=== PATIENT | male | born 1960 | race Two or more races ===

== ENCOUNTER 2017-01-30 21:30 | Inpatient (IN) | payer MEDICARE ==
[~2017-01-30] VITALS: Ht 175.3 cm; Wt 98.0 kg
[~2017-01-30 21:30] MED LIST: AMLO5TAB2 PO; BUPR-51 PO; HYDR-4077 PO; HYDR4TAB57 PO; INSU100V3 SQ; INSU3INS6 SUBCUT; LOSA100T15 PO; MORP15TA PO; PREG75CA PO; ZOLP10TA2 PO
[2017-01-30] MEDS ORDERED: IV NS 0.9% 1,000 ML BAG IV ONE (22:00)
[2017-01-30] MEDS ORDERED: HYDROMORPHONE INJ 2 MG/ML DISP.SYRIN IV ONE (22:00)
[2017-01-30] MEDS ORDERED: ONDANSETRON HCL/PF 4 MG/2 ML VIAL IVP ONE (22:00)
--- NOTE | 2017-01-30 22:00 | NUR ---
PT CAME IN FOR "HIGH BLOOD SUGAR", ALSO WITH C/O LOWER BACK PAIN AND LOWER ABD PAIN. SEEN BY MD FOR EVAL. VSS. FAMILY AT . SAFETY AND COMFORT MEASURES PROVIDED. WILL MONITOR.
[2017-01-30] MEDS ORDERED: ONDANSETRON HCL/PF 4 MG/2 ML VIAL ONE (22:02)
[2017-01-30] MEDS ORDERED: HYDROMORPHONE INJ 2 MG/ML DISP.SYRIN ONE (22:03)
--- NOTE | 2017-01-30 22:13 | NUR ---
20G RIGHT HAND IV STARTED, BLOOD SAMPLE OBTAINED AND SENT TO LAB
[2017-01-30 22:14] LABS: BASOPHILS # (AUTO) 0.1 /CMM (0.0-0.2); BASOPHILS % (AUTO) 0.6 % (0.0-2.0); EOSINOPHILS # (AUTO) 0.2 /CMM (0.0-0.7); EOSINOPHILS % (AUTO) 1.6 % (0.0-6.0); HEMATOCRIT 40 % (39-51); HEMOGLOBIN 13.3 g/dL (13.5-17.5); LYMPHOCYTES # (AUTO) 3.3 /CMM (0.8-4.8); LYMPHOCYTES % (AUTO) 32.4 % (20.0-44.0); MEAN CORPUSCULAR HEMOGLOBIN 29 PG (26.0-33.0); MEAN CORPUSCULAR HGB CONC 34 g/dl (31.0-36.0); MEAN CORPUSCULAR VOLUME 88 fL (80-96); MONOCYTES # (AUTO) 0.6 /CMM (0.1-1.30); MONOCYTES % (AUTO) 5.9 % (2.0-12.0); NEUTROPHILS # (AUTO) 6.1 /CMM (1.8-8.9); NEUTROPHILS % (AUTO) 59.5 % (43.0-81.0); PLATELET COUNT (AUTO) 212 /CMM (150-450); RDW COEFFICIENT OF VARIATION 13.2 (11.5-15.0); RED BLOOD CELL COUNT(AUTO) 4.54 MIL/uL (4.5-6.0); WHITE BLOOD COUNT (AUTO) 10.3 K/uL (4.3-11.0)
--- NOTE | 2017-01-30 22:14 | NUR ---
MEDICATED PT ORDERED
[2017-01-30 22:17] LABS: APPEARANCE,URINE CLEAR (CLEAR); BILIRUBIN,URINE NEGATIVE (NEGATIVE); BLOOD, URINE NEGATIVE Ery/uL (NEGATIVE); COLOR,URINE YELLOW (YELLOW); KETONES,URINE TRACE (NEGATIVE); LEUKOCYTE ESTERASE ,URINE NEGATIVE (NEGATIVE); NITRITE, URINE NEGATIVE (NEGATIVE); PROTEIN,URINE TRACE mg/dl (NEGATIVE); UGLUCOSE 3+ mg/dL (NEGATIVE); UROBILINOGEN,URINE 0.2 EU/dL (0.2)
--- NOTE | 2017-01-30 22:25 | NUR ---
EMETERIO AMADOR AT BS.
[2017-01-30 22:28] LABS: INR 0.93 (0.87-1.13); PROTHROMBIN TIME 9.7 SECS (9.5-12.7)
[2017-01-30 22:33] LABS: TROPONIN I < 0.017 ng/mL (0.00-0.056)
[2017-01-30 22:36] LABS: BACTERIA,URINE None seen /HPF (None Seen); RBC,URINE 0-2 /HPF (0-2); SQUAMOUS EPITHELIAL CELL,UR Few /HPF (None Seen); URINE AMORPHOUS URATE Rare /HPF (None Seen); WBC,URINE 0-2 /HPF (0-3)
[2017-01-30 22:36] LABS: ALANINE AMINOTRANSFERASE 41 U/L (12-78); ALBUMIN 3.8 g/dL (3.4-5.0); ALKALINE PHOSPHATASE 91 U/L (46-116); ASPARTATE AMINOTRANSFERASE 15 U/L (15-37); BILIRUBIN,DIRECT 0.1 mg/dL (0.0-0.2); BILIRUBIN,TOTAL 0.4 mg/dL (0.2-1.0); CALCIUM, SERUM 8.9 mg/dL (8.5-10.1); CARBON DIOXIDE 25 mmol/L (21-32); CHLORIDE 101 mmol/L (98-107); GLUCOSE 243 mg/dL (74-106); LIPASE 130 U/L (73-393); POTASSIUM 3.1 mmol/L (3.5-5.1); SODIUM SERUM 137 mmol/L (136-145); TOTAL PROTEIN, SERUM 7.6 g/dL (6.4-8.2); UREA NITROGEN, BLOOD 20 mg/dL (7-18)
[2017-01-30] MEDS ORDERED: HYDROMORPHONE 1 MG/1 ML DISP.SYRIN ONE (23:39)
--- NOTE | 2017-01-30 23:40 | NUR ---
PT MEDICATED ORDERED.
--- NOTE | 2017-01-30 23:50 | NUR ---
RT AT FOR ABG.
[2017-01-30 23:56] LABS: ABG BASE EXCESS -2.3 mmol/L; ABG OXYGEN SATURATION 95.8 % (92.0-98.5); ABG PCO2 29.8 mmHg (35.0-45.0); ABG PH 7.456 (7.350-7.450); ABG PO2 82.7 mmHg (75.0-100.0); AaDO2 31.3 mmHg; COHb 0.4 % (0.5-1.5); MetHb 0.3 % (0.0-1.5); O2Hb 95.1 % (94.0-97.0); SITE, ABG Right Brachial; VENT MODE, BG ROOM AIR
[2017-01-31] MEDS ORDERED: HYDROMORPHONE 1 MG/1 ML DISP.SYRIN IV ONE
[2017-01-31] MEDS ORDERED: LEVOFLOXACIN 750 MG /D5W 150ML 150 ML IV ONE (00:28)
[2017-01-31] MEDS ORDERED: KETOROLAC TROMETHAMINE INJ 30 MG/ML VIAL ONE (00:28)
[2017-01-31] MEDS ORDERED: POTASSIUM CHLORIDE 20 MEQ TAB.PRT.SR PO ONE ×2 (00:29→00:30)
[2017-01-31] MEDS ORDERED: LEVOFLOXACIN (750 MG) 750 MG TABLET PO SCH (00:30)
[2017-01-31] MEDS ORDERED: KETOROLAC TROMETHAMINE INJ 30 MG/ML VIAL IV ONE (00:30)
[2017-01-31 00:48] LABS: SALICYLATE 1.4 mg/dL (2.8-20.0)
--- NOTE | 2017-01-31 00:50 | NUR ---
DR. MOTA AT BEDSIDE. PT ADMITS TO WANTING TO HURT HIMSELF. DENIES HI. PT STATES " I WANT TO WALK INTO TRAFFIC" PT PLACED ON SUICIDAL PRECAUTIONS.
[2017-01-31] MEDS ORDERED: LEVOFLOXACIN 750 MG /D5W 150ML PIGGYBACK IV ONE (01:00)
--- NOTE | 2017-01-31 01:55 | NUR ---
DR. VINICIO MARADIAGA.
[2017-01-31] MEDS ORDERED: MAG HYDROX/AL HYDROX/SIMETH 30 ML UDC PO PRN (02:00)
[2017-01-31] MEDS ORDERED: ENOXAPARIN SODIUM 40 MG/0.4 ML DISP.SYRIN SQ SCH (02:00)
[2017-01-31] MEDS ORDERED: HYDROCODONE/APAP 5/325MG 1 EACH TABLET PO PRN (02:00)
[2017-01-31] MEDS ORDERED: Z GUARD REMEDY 2 OZ OINT TP PRN (02:00)
[2017-01-31] MEDS ORDERED: DEXTROSE 50%-WATER 50 ML DISP.SYRIN IV PRN (02:00)
[2017-01-31] MEDS ORDERED: ONDANSETRON HCL/PF 4 MG/2 ML VIAL IVP PRN (02:00)
[2017-01-31] MEDS ORDERED: ZOLPIDEM TARTRATE 5 MG TABLET PO PRN (02:00)
[2017-01-31] MEDS ORDERED: MAGNESIUM HYDROXIDE 30 ML UDC PO PRN (02:00)
[2017-01-31] MEDS ORDERED: ACETAMINOPHEN 325 MG TABLET PO PRN (02:00)
--- NOTE | 2017-01-31 02:30 | NUR ---
MS RN ADMITTING NOTES RECEIVED PATIENT FROM ER ON A GURNEY WITH ASSISTANCE. A & O X 4, COOPERATIVE, ABLE TO MAKE NEEDS KNOWN. VITALS WNL. NO SOB, BREATHING EVEN & UNLABORED. ON O2 AT 2LPM VIA NC WITH O2SAT 96 %. IV ACCESS TO RIGHT HAND, INTACT PATENT, RUNNING WITH LEVOFLOXACIN ORDERED BY MD. HAS C/O 9/10 PAIN TO GENERALIZED ABDOMEN. LBM ON 01/29/17. NO N/V OR DIARRHEA, ABD SOFT & NONTENDER. ADMITTING CARE DONE. ON 1:1 SITTER FOR SUICIDAL IDEATION VERBALIZED TO ER MD. UPON TRANSFER TO MS FLOOR, PATIENT DENIES SUICIDAL IDEATIONS/INTENT TO HARM HIMSELF. BED IN LOW LOCKED POSITION. SIDE RAILS UP X2, CALL LIGHT WITHIN REACH. WILL CONTINUE TO MONITOR.
[2017-01-31] MEDS ORDERED: ENOXAPARIN SODIUM 40 MG/0.4 ML DISP.SYRIN SQ ONE (02:56)
[2017-01-31] MEDS ORDERED: QUET25TA PO (03:32)
[2017-01-31] MEDS ORDERED: CYCL5TAB PO (03:32)
[2017-01-31] MEDS ORDERED: DULO30CA2 PO (03:32)
[2017-01-31] MEDS ORDERED: NALO25TA PO (03:32)
[2017-01-31] MEDS ORDERED: FLUO-120 PO (03:32)
[2017-01-31] MEDS ORDERED: HYDROMORPHONE INJ 2 MG/ML DISP.SYRIN ONE (03:46)
[2017-01-31] MEDS: HYDROMORPHONE INJ 2 MG/ML DISP.SYRIN IV PRN ×5 (03:55→21:12)
[2017-01-31] MEDS ORDERED: INSULIN REGULAR, HUMAN 100 UNIT/ML 3 ML VIAL ONE (05:24)
--- NOTE | 2017-01-31 05:45 | NUR ---
RN NOTES: PATIENT APPEARS TO BE HALF AWAKE, SEEMED ANXIOUS, STATES THAT HE IS HAVING ANXIETY, REASSURED PATIENT. PATIENT APPEARS MUCH CALMER THEN.
--- NOTE | 2017-01-31 06:29 | NUR ---
MS RN CLOSING NOTES PATIENT SLEPT INTERMITTENTLY AT NIGHT. PRN PAIN MEDICINE WAS GIVEN FOR GENERALIZED ABDOMINAL PAIN & WAS EFFECTIVE. NO N/V & DIARRHEA NOTED. ABD SOFT & NONTENDER. ON O2 AT 2LPM VIA NC WITH O2SAT AT 97%. IV ACCESS TO RIGHT HAND, INTACT PATENT,SL. NO ACUTE DISTRESS NOTED. BED IN LOW LOCKED POSITION. CALL LIGHT WITHIN REACH. WILL ENDORSE TO AM SHIFT NURSE. MONITORING CLOSELY.
[2017-01-31] MEDS: INSULIN REGULAR, HUMAN 100 UNIT/ML 3 ML VIAL SQ PRN ×2 (06:48→12:35)
[2017-01-31] MEDS: BLOOD SUGAR DIAGNOSTIC 1 EACH STRIP VI SCH ×4 (06:49→21:51)
--- NOTE | 2017-01-31 07:15 | NUR ---
RN MS NOTES PATIENT ALERT AND ORIENTED X4, SITTER AT BEDSIDE, DENIES SUICIDAL IDEATION AT THIS TIME, BREATHING EVEN AND UNLABORED, NO SOB NOTED, PIV PATENT AND FLUSHES WELL, C/O ABDOMINAL PAIN, OFFERED DILAUDID, NEEDS ATTENDED, SAFETY MEASURES IN PLACED, CALL LIGHT WITHIN REACH, WILL CONTINUE TO MONITOR.
[2017-01-31 08:00] VITALS: BP 115/83
[2017-01-31] MEDS: PREGABALIN 25 MG CAPSULE PO SCH ×2 (08:23→16:01)
[2017-01-31] MEDS: BUPROPION XL 150 MG TAB.ER.24 PO SCH (08:23)
[2017-01-31] MEDS: AMLODIPINE BESYLATE 5 MG TABLET PO SCH ×2 (08:24→17:00)
[2017-01-31] MEDS ORDERED: CLONIDINE HCL 0.1 MG TABLET PO PRN (09:00)
[2017-01-31 09:20] LABS: BASOPHILS % (AUTO) 0.5 % (0.0-2.0); EOSINOPHILS # (AUTO) 0.3 /CMM (0.0-0.7); HEMATOCRIT 36 % (39-51); HEMOGLOBIN 12.1 g/dL (13.5-17.5); LYMPHOCYTES # (AUTO) 3.8 /CMM (0.8-4.8); LYMPHOCYTES % (AUTO) 41.5 % (20.0-44.0); MEAN CORPUSCULAR HEMOGLOBIN 30 PG (26.0-33.0); MEAN CORPUSCULAR HGB CONC 33 g/dl (31.0-36.0); MEAN CORPUSCULAR VOLUME 89 fL (80-96); MONOCYTES # (AUTO) 0.5 /CMM (0.1-1.30); MONOCYTES % (AUTO) 5.3 % (2.0-12.0); NEUTROPHILS # (AUTO) 4.5 /CMM (1.8-8.9); NEUTROPHILS % (AUTO) 49.7 % (43.0-81.0); PLATELET COUNT (AUTO) 182 /CMM (150-450); RDW COEFFICIENT OF VARIATION 13.2 (11.5-15.0); RED BLOOD CELL COUNT(AUTO) 4.08 MIL/uL (4.5-6.0); WHITE BLOOD COUNT (AUTO) 9.1 K/uL (4.3-11.0)
[2017-01-31 09:29] LABS: CALCIUM, SERUM 8.1 mg/dL (8.5-10.1); CREATININE 1.2 mg/dL (0.6-1.3); MAGNESIUM 1.8 mg/dL (1.8-2.4); POTASSIUM 3.7 mmol/L (3.5-5.1)
--- NOTE | 2017-01-31 10:02 | NUR ---
WOUND CARE CONSULT: PT PRESENTS WITH BACK PUSTULE, S/P I&D BY PMD PER PT REPORT. PT IS CONTINENT AND INDEPENDENT WITH BED MOBILITY. SITTER AT BEDSIDE. RECOMMENDATIONS MADE FOR SKIN PROTECTION AND WOUND CARE. DISCUSSED WITH NURSING STAFF. WILL SEE PRN. CURRENT PAT SCORE IS 17. MD IN AGREEMENT WITH PLAN OF CARE. Addendum: 01/31/17 at 1004 by XANDER GILL WNDNU Amended: Links added.
[2017-01-31] MEDS: METRONIDAZOLE 500MG/ NS 100ML 500 MG in PREMIX 1 EA IV SCH ×2 (10:13→16:01)
[2017-01-31] MEDS: PANTOPRAZOLE 40 MG VIAL IV SCH (10:13)
[2017-01-31] MEDS: IV NS 0.9% 1,000 ML IV PRN ×2 (10:17→21:51)
[2017-01-31 12:00] VITALS: BP 100/66
[2017-01-31] MEDS: BACITRACIN/POLYMYXIN B 15 GM TUBE TP SCH ×2 (12:34→16:02)
[2017-01-31] MEDS: CLOTRIMAZOLE 1% 15 GM TUBE TP SCH ×2 (12:35→16:02)
--- NOTE | 2017-01-31 13:15 | NUR ---
RN MS NOTES AFTER PHYSICAL THERAPY EVALUATION, APPROX 11:00AM PATIENT WAS SITTING IN HIS CHAIR AND THE SITTER NOTED PATIENT TO BE CONFUSED. STAFF ASKED PATIENT HIS NAME AND HE COULDN'T RECALL HIS NAME, HE WAS ASKING WHY HE WAS IN THE HOSPITAL, RE-ORIENTED PATIENT TO REALITY AND CURRENT CONDITION. PATIENT CONTINUES TO BE CONFUSED FOR ABOUT 30 MINS, VITAL SIGNS STABLE, NO S/SX OF STROKE NOTED, NO SLURRING OF SPEECH, NO FACIAL DROOPING, ARM WEAKNESS NOTED, NO DISTRESS NOTED. PATIENT IS AWAITING FOR PSYCH CONSULT WITH DR. NARAYANAN, PER PATIENT HE'S SLOWLY RECOVERING AND COMING BACK TO HIS NORMAL SELF, AND HE WAS AWARE HE WAS CONFUSED, AND IS NOT SURE WHY. INFORMED PATIENT TO STAY CALM AND WE'LL INFORM THE PSYCH DOCTOR WHEN HE COMES.
--- NOTE | 2017-01-31 14:31 | NUR ---
RN MS NOTES PATIENT SEEN BY DR. NARAYANAN MADE AWARE OF EPISODES OF CONFUSION, RECEIVED NEW ORDERS, ORDER NOTED AND CARRIED OUT.
--- NOTE | 2017-01-31 15:36 | NUR ---
Social service consult requested by Dr. Hernandes for suicidal ideations. Pt. is a 57 year old male who was admitted to [facility] for enteritis. Upon examination by the doctor pt. disclosed stating he has been feeling suicidal for the past few days and has a plan to run into traffic. SW met with pt. bedside. Pt. has a sitter bedside. Pt. is alert and oriented x 4. Pt. was sitting in his bed during time of assessment. Pt. is alert and oriented x 4. Pt. states he lives with his daughter and at [address] in [place]. Pt's emergency contact is his Aissatou [phone]. Pt. states he has bouts of confusion. Pt. has a history of Depression and Anxiety. Pt. currently takes Prozac and Seroquel. Pt. denies drinking alcohol and using drugs. Pt. denies using marijuana. Pt. use to smoke cigarettes but states he stopped a while ago. Pt. is unemployed and receives approximately $544 in SSI per month. Pt. states he has bouts of suicidal ideations but no specific plan. Pt. denies visual/auditory hallucinations at this time. Pt. was evaluated by psychiatrist Dr. Ward. Pt. has a history of psychiatric hospitalizations. Pt. has been to several psychiatric facilities such as [facility], [facility] and [facility]. SW to re-evaluate pt. tomorrow regarding suicidal ideations. PALMER informed ANGELIQUE Busby, if pt. states he is suicidal and has a plan to contact crisis team for evaluation. No other social service needs required at this time. PALMER if available if needed.
[2017-01-31] MEDS: HYDROCODONE/APAP 10/325MG 1 EA TABLET PO PRN (15:55)
[2017-01-31] MEDS: SENNOSIDES/DOCUSATE SODIUM 1 TAB TABLET PO SCH (15:55)
[2017-01-31 16:00] VITALS: BP 112/82
[2017-01-31] MEDS: LOSARTAN POTASSIUM 50 MG TABLET PO SCH (16:00)
[2017-01-31] MEDS: INSULIN DETEMIR 100 UNIT/ML CARTRIDGE SQ SCH (17:00)
--- NOTE | 2017-01-31 17:03 | NUR ---
RN MS NOTES INFORMED DR. MOONEY PATIENT IS HAVING DIFFICULTY URINATING, WAS ONLY ABLE TO URINATE 250CC SINCE LAST NIGHT. RECEIVED NEW ORDER TO INSERT F/C, ORDER NOTED AND CARRIED OUT.
--- NOTE | 2017-01-31 18:26 | NUR ---
RN MS NOTES PATIENT ALERT AND ORIENTED, NO DISTRESS NOTED, F/C INSERTED WITH 50CC OF TEA COLORED URINE, NOTED SCROTAL EDEMA, CURRENTLY ON CLEAR LIQUID DIET AND TOLERATING WELL, STILL COMPLAINING OF ABDOMINAL PAIN INTERMITTENTLY, ON IVF NS AT 75ML/HR, TREATMENT DONE ON BACK AREA, NO S/SX OF HYPO/HYPERGLYCEMIA NOTED, ALL NEEDS ATTENDED AND MET, SITTER AT BEDSIDE, NO SUICIDE IDEATION AT THIS TIME, CALL LIGHT WITHIN REACH, WILL ENDORSE TO NAILING MACHINE FEEDER FOR BI.
--- NOTE | 2017-01-31 19:30 | NUR ---
MS RN OPENING NOTES: PATIENT IN BED, AOX4. PATIENT ON O2 AT 2 LPM VIA NC, BREATHING EVEN AND UNLABORED. APPEARS CALM AND IN NO DISTRESS, DENIES ANY INTENT TO HARM SELF, BUT STATES THAT HE IS BEGINNING TO HAVE ABDOMINAL PAIN POINTING TOWATDS HIS R UPPER AND LOWER SIDE OF THE ABDOMEN. PATIENT ALSO STATES THAT HE HAD AN EPISODE EARLIER THAT HE SUDDENLY DID NOT KNOW WHERE HE WAS. HAY CATHETER IN PLACE DRAINING DARK YELLOW URNIE. PIV OVER R HAND G 20 INTACT AND INFUSING WELL WITH NS RUNNING AT 125 ML/HR. PROVIDED FOR COMFORT AND SAFETY. BED IN LOWEST AND LOCKED POSITION, SIDERAILS UP X2. SITTER AT BEDSIDE. WILL CONT TO MONITOR.
[2017-01-31 20:00] VITALS: BP 139/85
[2017-01-31] MEDS: QUETIAPINE FUMARATE 25 MG TABLET PO SCH (21:50)
[2017-01-31] MEDS: *INSULIN REGULAR(HUMULIN R)HUM 100 UNIT/ML VIAL SQ PRN (22:02)
--- NOTE | 2017-01-31 22:07 | NUR ---
RN NOTES: BLOOD SUGAR CHECKED AT 147 MG/DL, ADMINISTERED 2 UNITS REGULAR INSULIN PER SCALE. WILL CONT TO MONITOR.
[2017-01-31] MEDS: LORAZEPAM INJ 2 MG/ML VIAL IVP PRN (22:55)
[2017-01-31] MEDS: ENOXAPARIN SODIUM 40 MG/0.4 ML DISP.SYRIN SQ SCH (22:55)
--- NOTE | 2017-01-31 23:02 | NUR ---
RN NOTES: PATIENT WAS SEEN IN BED, APPEARS VERY AGITATED AND FEARFUL, CRYING, AND SAYING THAT THERE IS A MAN IN FRONT OF HIM WHO WANTS TO HIT HIM. PATIENT THEN APPEARS CONFUSED, SAYING THAT HE DOES NOT KNOW WHERE HE IS AND WHY HE IS HERE. REASSURED AND REORIENTED PATIENT WITH PUMPMAN. PER PUMPMAN, PATIENT WAS SLEEPING FOR SOME MINUTES WHEN HE SUDDENLY AWOKE AGITATED. ADMINISTERED IV ATIVAN 0.5 MG PRN. PROVIDED FOR SAFETY. SITTER AT BEDSIDE. WILL CONT TO MONITOR.
[2017-01-31] MEDS: LEVOFLOXACIN 750 MG /D5W 150ML 750 MG in PREMIX 1 EA IV SCH (23:35)
[2017-02-01] MEDS ORDERED: LEVOFLOXACIN 500 MG /D5W 100ML 500 MG in PREMIX 1 EA IV SCH ×2
--- NOTE | 2017-02-01 01:30 | NUR ---
RN NOTES: PATIENT'S R HAND PIV SITE SWOLLEN, WITHOUT REDNESS. IV LINE D'JIMBO, ELEVATED EXTREMITY. REINSERTED NEW IV LINE OVER L WRIST G 20
[2017-02-01] MEDS: METRONIDAZOLE 500MG/ NS 100ML 500 MG in PREMIX 1 EA IV SCH ×3 (01:37→17:49)
[2017-02-01 02:20] VITALS: BP 120/79
--- NOTE | 2017-02-01 02:20 | NUR ---
RN NOTES: PT COMPLAINED OF 9/10 PAIN OVER ABDOMEN. ADMNIISTERED DILAUDID 2 MG IV PRN. WILL CONT TO MONITOR.
--- NOTE | 2017-02-01 04:10 | NUR ---
RN NOTES: PT COMPLAINED OF 7/10 PAIN OVER ABDOMEN, GAVE NORCO 5-325 MG PO. WILL CONT TO MONITOR.
[2017-02-01 06:34] LABS: BASOPHILS % (AUTO) 0.5 % (0.0-2.0); EOSINOPHILS # (AUTO) 0.4 /CMM (0.0-0.7); EOSINOPHILS % (AUTO) 4.5 % (0.0-6.0); HEMATOCRIT 34 % (39-51); HEMOGLOBIN 11.2 g/dL (13.5-17.5); LYMPHOCYTES # (AUTO) 2.9 /CMM (0.8-4.8); MEAN CORPUSCULAR HEMOGLOBIN 30 PG (26.0-33.0); MEAN CORPUSCULAR HGB CONC 33 g/dl (31.0-36.0); MEAN CORPUSCULAR VOLUME 89 fL (80-96); MONOCYTES # (AUTO) 0.6 /CMM (0.1-1.30); MONOCYTES % (AUTO) 6.9 % (2.0-12.0); NEUTROPHILS # (AUTO) 4.3 /CMM (1.8-8.9); NEUTROPHILS % (AUTO) 53.1 % (43.0-81.0); PLATELET COUNT (AUTO) 170 /CMM (150-450); RDW COEFFICIENT OF VARIATION 13.1 (11.5-15.0); RED BLOOD CELL COUNT(AUTO) 3.78 MIL/uL (4.5-6.0); WHITE BLOOD COUNT (AUTO) 8.2 K/uL (4.3-11.0)
[2017-02-01] MEDS: BLOOD SUGAR DIAGNOSTIC 1 EACH STRIP VI SCH ×4 (06:34→21:43)
[2017-02-01] MEDS: HYDROMORPHONE INJ 2 MG/ML DISP.SYRIN IV PRN ×5 (06:37→23:18)
[2017-02-01 06:43] LABS: CALCIUM, SERUM 7.8 mg/dL (8.5-10.1); CREATININE 1.2 mg/dL (0.6-1.3); MAGNESIUM 1.8 mg/dL (1.8-2.4); PHOSPHORUS 3.7 mg/dL (2.5-4.9); POTASSIUM 3.8 mmol/L (3.5-5.1)
[2017-02-01] MEDS: INSULIN REGULAR, HUMAN 100 UNIT/ML 3 ML VIAL SQ PRN ×2 (06:44→17:24)
--- NOTE | 2017-02-01 06:57 | NUR ---
MS RN CLOSING NOTES: PATIENT IN BED, AOX4, ON O2 AT 2 LPM VIA NC, BREATHING EVEN AND UNLABORED. APPEARS CALM AND IN NO DISTRESS AT THIS TIME. DUE MEDS GIVEN. PIV OVER LEFT WRIST G 20 INTACT AND INFUSING WELL WITH NS RUNNNING AT 125 MG /HR. BLOOD SUGAR CHECKED AT 145 MG/DL, ADMINISTERED 2 UNITS REGULAR INSULIN SQ PER SCALE. HAY CATHETER IN PLACE DRAINING CLEAR YELLOW URINE. PROVIDED FOR COMFORT AND SAFETY. BED IN LOWEST AND LOCKED POSITION, SIDERAILS UP X3. SITTER AT BEDSIDE. WILL ENDORSE TO AM RN FOR BI.
--- NOTE | 2017-02-01 07:30 | NUR ---
- PATIENT WAS AWAKE, C/O SEVERE PAIN AT RIGHT ABDOMEN, REQUESTED PAIN MED. , WITH LIGHT RICHARD URINE DRAINING TO URINARY BAG.
[2017-02-01] MEDS: HYDROCODONE/APAP 10/325MG 1 EA TABLET PO PRN ×4 (07:50→21:30)
[2017-02-01 08:00] VITALS: BP 120/85
[2017-02-01] MEDS: PANTOPRAZOLE 40 MG VIAL IV SCH (08:26)
[2017-02-01] MEDS: PREGABALIN 25 MG CAPSULE PO SCH ×2 (08:27→17:22)
[2017-02-01] MEDS: DULOXETINE HCL 30 MG CAPSULE.DR PO SCH (08:27)
[2017-02-01] MEDS: BUPROPION XL 150 MG TAB.ER.24 PO SCH (08:27)
[2017-02-01] MEDS: SENNOSIDES/DOCUSATE SODIUM 1 TAB TABLET PO SCH (08:27)
[2017-02-01] MEDS: LOSARTAN POTASSIUM 50 MG TABLET PO SCH (08:28)
[2017-02-01] MEDS: INSULIN DETEMIR 100 UNIT/ML CARTRIDGE SQ SCH ×2 (08:53→17:27)
[2017-02-01] MEDS: AMLODIPINE BESYLATE 5 MG TABLET PO SCH ×2 (09:13→17:22)
[2017-02-01] MEDS: BACITRACIN/POLYMYXIN B 15 GM TUBE TP SCH ×2 (09:14→18:10)
[2017-02-01 10:00] VITALS: BP 120/85
[2017-02-01] MEDS: IV NS 0.9% 1,000 ML IV PRN (10:02)
[2017-02-01] MEDS ORDERED: MAGNESIUM CITRATE 296 ML BOTTLE PO ONE (12:30)
--- NOTE | 2017-02-01 12:38 | NUR ---
- MD visited patient & verbalized to MD NEED TO HAVE A LAXATIVE FOR THE CONSTIPATION IT MAY CONTRIBUTE RO ABDOMINAL PAIN . MAG CITRATE WAS ORDERED.
[2017-02-01] MEDS: CLOTRIMAZOLE 1% 15 GM TUBE TP SCH ×2 (12:43→17:50)
[2017-02-01 16:15] VITALS: BP 125/74
--- NOTE | 2017-02-01 18:18 | NUR ---
RN CLOSING NOTES:\ - PATIENT REMAINED TO BE CALM & COOPERATIVE, BUT STILL LOOKS FORWARD TO HIS DIALUDID INJECTION AT 1845, & WAS GIVEN A NORCO IN BETWEEN. PATIENT CONTINUED IV INFUSING VIA PUMP, HAD THE MAG. CITRATE BUT NO SIGNS OF BOWEL MOVEMENT YET, THO''PATIENT WAS INFORMED OF THE EFFECTS. SITTER AT BEDSIDE.
--- NOTE | 2017-02-01 19:15 | NUR ---
-PATIENT NOW HAS THE START OF BOWEL MOVEMENTS,ASSISTED TO BATHROOM.
--- NOTE | 2017-02-01 19:15 | NUR ---
RN MS - INITIAL NOTES PATIENT CURRENTLY AWAKE VERBALLY RESPONSIVE. NO S/S OF SOB OR ANY DISCOMFORT NOTED. DTR AT BEDSIDE WITH PATIENT. PATIENT IS CALM AND COOPERATIVE. IV FLUID INFUSING. WILL CONTINUE TO MONITOR PATIENT.
[2017-02-01 20:00] VITALS: BP 133/98
[2017-02-01] MEDS: QUETIAPINE FUMARATE 25 MG TABLET PO SCH (21:30)
[2017-02-01] MEDS: ENOXAPARIN SODIUM 40 MG/0.4 ML DISP.SYRIN SQ SCH (21:32)
[2017-02-01] MEDS: *INSULIN REGULAR(HUMULIN R)HUM 100 UNIT/ML VIAL SQ PRN (21:42)
[2017-02-01 22:00] VITALS: BP 130/86
[2017-02-01] MEDS: LEVOFLOXACIN 750 MG /D5W 150ML 750 MG in PREMIX 1 EA IV SCH (23:26)
[2017-02-02] MEDS: METRONIDAZOLE 500MG/ NS 100ML 500 MG in PREMIX 1 EA IV SCH ×3 (00:56→17:56)
[2017-02-02] MEDS: LORAZEPAM INJ 2 MG/ML VIAL IVP PRN (01:01)
[2017-02-02] MEDS: BLOOD SUGAR DIAGNOSTIC 1 EACH STRIP VI SCH ×2 (07:30→15:56)
--- NOTE | 2017-02-02 08:00 | NUR ---
RN MS OPENING NOTES PT AWAKE AND RESTING IN BED. PT COMPLAINING OF PAIN. WILL ADDRESSED AND WILL CONTINUE TO MONITOR. NO S/S OF SOB. CALL LIGHT WITHIN REACH.
[2017-02-02] MEDS: INSULIN DETEMIR 100 UNIT/ML CARTRIDGE SQ SCH ×2 (09:00→17:46)
[2017-02-02] MEDS: PANTOPRAZOLE 40 MG VIAL IV SCH (09:11)
[2017-02-02] MEDS: BUPROPION XL 150 MG TAB.ER.24 PO SCH (09:12)
[2017-02-02] MEDS: PREGABALIN 25 MG CAPSULE PO SCH ×2 (09:12→17:35)
[2017-02-02] MEDS: LOSARTAN POTASSIUM 50 MG TABLET PO SCH (09:12)
[2017-02-02] MEDS: SENNOSIDES/DOCUSATE SODIUM 1 TAB TABLET PO SCH (09:13)
[2017-02-02] MEDS: AMLODIPINE BESYLATE 5 MG TABLET PO SCH ×2 (09:13→17:36)
[2017-02-02 10:00] VITALS: BP 143/87
[2017-02-02] MEDS ORDERED: KETOROLAC TROMETHAMINE 15 MG/ML VIAL IV PRN (10:00)
[2017-02-02 10:25] LABS: HEMOGLOBIN 11.7 g/dL (13.5-17.5); RED BLOOD CELL COUNT(AUTO) 3.95 MIL/uL (4.5-6.0)
[2017-02-02 10:26] LABS: BASOPHILS % (AUTO) 0.4 % (0.0-2.0); EOSINOPHILS % (AUTO) 5.5 % (0.0-6.0); HEMATOCRIT 35 % (39-51); LYMPHOCYTES % (AUTO) 31.5 % (20.0-44.0); MEAN CORPUSCULAR HEMOGLOBIN 30 PG (26.0-33.0); MEAN CORPUSCULAR HGB CONC 33 g/dl (31.0-36.0); MEAN CORPUSCULAR VOLUME 89 fL (80-96); MONOCYTES % (AUTO) 7.6 % (2.0-12.0); PLATELET COUNT (AUTO) 185 /CMM (150-450); RDW COEFFICIENT OF VARIATION 12.7 (11.5-15.0)
[2017-02-02 10:27] LABS: WHITE BLOOD COUNT (AUTO) 7.7 K/uL (4.3-11.0)
[2017-02-02] MEDS: DULOXETINE HCL 30 MG CAPSULE.DR PO SCH (10:37)
[2017-02-02] MEDS: BACITRACIN/POLYMYXIN B 15 GM TUBE TP SCH ×2 (12:40→17:39)
[2017-02-02] MEDS: INSULIN REGULAR, HUMAN 100 UNIT/ML 3 ML VIAL SQ PRN ×2 (12:43→17:43)
[2017-02-02 12:53] LABS: ALBUMIN 3.2 g/dL (3.4-5.0); BILIRUBIN,TOTAL 0.4 mg/dL (0.2-1.0); POTASSIUM 3.4 mmol/L (3.5-5.1); TOTAL PROTEIN, SERUM 6.5 g/dL (6.4-8.2)
[2017-02-02] MEDS: HYDROMORPHONE INJ 2 MG/ML DISP.SYRIN IV PRN ×2 (13:16→16:47)
[2017-02-02] MEDS ORDERED: POTASSIUM CHLORIDE 20 MEQ TAB.PRT.SR PO SCH (15:30)
[2017-02-02] MEDS: CLOTRIMAZOLE 1% 15 GM TUBE TP SCH ×2 (15:56→17:40)
[2017-02-02] MEDS ORDERED: OLANZAPINE 10 MG VIAL IM ONE ×3 (16:30→19:00)
[2017-02-02] MEDS ORDERED: LORAZEPAM INJ 2 MG/ML VIAL IM ONE (16:30)
--- NOTE | 2017-02-02 16:30 | NUR ---
RN MS NOTES PT IN BED, RESTING, STARTED PULLING ON HIS NASAL CANULA TUBING AND WRAPPING IT AROUND HIS NECK, STARTED CRYING, SPOKE PT TO CALM DOWN, PT STILL CRYING AND WILL NOT LET GO OF THE TUBING, PT LET GO OF THE TUBING AND WAS CRYING, TELLING STAFF TO LEAVE HIM ALONE, KEPT BED AND SURROUNDING AREA SAFE, DR. NARAYANAN INFORMED, ORDERS GIVEN, ORDERS NOTED, PT REFUSED MED AT THIS TIME, PT CALMED DOWN.
[2017-02-02] MEDS ORDERED: QUETIAPINE FUMARATE 25 MG TABLET PO PRN (17:00)
--- NOTE | 2017-02-02 17:00 | NUR ---
RN MS NOTES PT CALM AT THIS TIME, SITTER AT BEDSIDE, DR. MOONEY INFORMED OF PT'S CURRENT BEHAVIOR, ORDER GIVEN, CLEARED PT FOR DISCHARGE AND TRANSFER TO GPS, DR. NARAYANAN ALSO ORDERED FOR CRISIS TEAM EVAL FOR POSSIBLE HOLD, AWAITING EVAL, PT CALM AT THIS TIME, SAFETY PRECAUTIONS OBSERVED.
[2017-02-02 17:36] VITALS: BP 137/78
[2017-02-02] MEDS ORDERED: LORAZEPAM INJ 2 MG/ML VIAL IV STA (18:24)
[2017-02-02] MEDS ORDERED: LORAZEPAM INJ 2 MG/ML VIAL IV ONE (19:00)
--- NOTE | 2017-02-02 19:15 | NUR ---
RN MS NOTES PT WAS EVALUATED BY CRISIS TEAM WAREHOUSE TRAFFIC SUPERVISOR, WAS PUT ON HOLD, PT FOR TRANSFER TO GPS BUT PT REFUSED AT FIRST AND WAS GETTING COMBATIVE AND AGGRESSIVE TO STAFF, DR. NARAYANAN INFORMED, MEDICATION ADMINISTERED ORDERED BUT PT STILL AGITATED, DR. NARAYANAN INFORMED AGAIN AND ORDERED MEDICATIONS, PT CALMED DOWN AND AGREED TO RECEIVE ATIVAN AND TO TRANSFER TO GPS, PT TRANSFERED TO GPS ACCOMPANIED BY RN TESTING, REPORT GIVEN TO ANGELIQUE SAINZ.
[2017-02-02] MEDS ORDERED: ACETAMINOPHEN 325 MG TABLET PO PRN (20:30)
[2017-02-02] MEDS ORDERED: MAGNESIUM HYDROXIDE 30 ML UDC PO PRN (20:30)
[2017-02-02] MEDS ORDERED: MAG HYDROX/AL HYDROX/SIMETH 30 ML UDC PO PRN (20:30)
[2017-02-02] MEDS ORDERED: TEMAZEPAM 7.5 MG CAPSULE PO PRN (20:30)
[2017-02-02] MEDS ORDERED: LORAZEPAM 0.5 MG TABLET PO PRN (20:30)
[2017-02-03] MEDS ORDERED: ALLA266C2 TP (07:57)
[2017-02-03] MEDS ORDERED: BLOO-668 IN (07:57)
[2017-02-03] MEDS ORDERED: HYDR-548 PO (07:57)
[2017-02-03] MEDS ORDERED: ACET-868 PO (07:57)
[2017-02-03] MEDS ORDERED: LORA2VIA6 SQ (07:57)
[2017-02-03] MEDS ORDERED: BACI1PAC2 TP (07:57)
[2017-02-03] MEDS ORDERED: CLON0.1T PO (07:57)
[2017-02-03] MEDS ORDERED: HYDR-552 PO (07:57)
[2017-02-03] MEDS ORDERED: ENOX40DI SQ (07:57)
[2017-02-03] MEDS ORDERED: CLOT15CR63 TP (07:57)
[2017-02-03] MEDS ORDERED: MAG30ORA PO (07:57)
[2017-02-03] MEDS ORDERED: INSU100I19 SQ (07:57)
[2017-02-03] MEDS ORDERED: MAGN400O6 PO (07:57)
== END 2017-02-02 20:20 | DRG 372 ==
LOC: ER 21:35 → MED 01-31 01:36 → UNDOADMIN 01-31 01:36 → GPS 02-02 19:44 → UNDOADMIN 02-02 19:44 → GPS 02-02 19:53 → UNDODISIN 02-02 20:20
PROVIDERS: ADMIT Internal Medicine; ATTEND Psychiatry & Neurology Psychiatry
DX: A04.9 Bacterial intestinal infection, unspecified (principal); R45.851 Suicidal ideations; F33.2 Major depressive disorder, recurrent severe without psychotic features; E11.65 Type 2 diabetes mellitus with hyperglycemia; I10 Essential (primary) hypertension; G89.4 Chronic pain syndrome; K21.9 Gastro-esophageal reflux disease without esophagitis; Z88.0 Allergy status to penicillin; M17.0 Bilateral primary osteoarthritis of knee; Z79.4 Long term (current) use of insulin
CPT/HCPCS: 36415; 36600; 71010-TC; 73630-TC; 76705-TC; 80048-TC; 80053-TC; 80076-TC; 81000-TC; 82803-TC; 82962-TC; 83690-TC; 83735-TC; 84100-TC; 84484-TC; 85025-TC; 85730-TC; 87081-TC; 97116-TC; 97530-TC; A4216; A4606; C9113; G0480; J1170; J1650; J1815; J1885; J1956; J2060; J2405; J3490; J7030; Z7610

== ENCOUNTER 2017-02-02 20:45 | Inpatient (IN) | payer MEDICARE ==
[~2017-02-02] VITALS: Ht 172.7 cm; Wt 86.2 kg
[2017-02-02 20:00] VITALS: BP 119/77
--- NOTE | 2017-02-02 20:30 | NUR ---
ADMITTED THIS 57 YEARS OLD MALE FROM MED- SURGE PATIENT WAS PLACED 5150 HOLD DUE TO SUICIDAL IDEATIONS UNABLE TO CARE FOR HIM - SELF WAS GETTING AGGRESSIVE TO STAFF, ON FACE TO FACE ASSESSMENT PATIENT DENIES ANY MORE SI/HI ONLY SAID HE IS IN MAJOR DEPRESSION DUE TO HIS CHRONIC PAIN, AND PROBLEM, NO RESPIRATORY DISTRESS NOTED, PATIENT HAS A FOLY- CATHETER, SKIN IS INTACT NO OPEN WOUND NOTED, REFUSED REFUSED TO SIGN CONSENT PAPER STATED I AM TOO TIRED ADVISEMENT EXPLAIN AND GIVE TO PATIENT WITH HOSPITAL HAND BOOK, PATIENT ASLEEP RIGHT NOW SITTER 1:1 AT BED SIDE WILL CONTINUES TO MONITOR THE PATIENT FOR SAFETY AND FALL PRECAUTIONS.
[~2017-02-02 20:45] MED LIST changes: +CYCL5TAB PO; +DULO30CA2 PO; +FLUO-120 PO; +NALO25TA PO; +QUET25TA PO
[2017-02-02] MEDS ORDERED: MAGNESIUM HYDROXIDE 30 ML UDC PO PRN (21:30)
[2017-02-02] MEDS ORDERED: ACETAMINOPHEN 325 MG TABLET PO PRN (21:30)
[2017-02-02] MEDS ORDERED: MAG HYDROX/AL HYDROX/SIMETH 30 ML UDC PO PRN (21:30)
[2017-02-03] MEDS ORDERED: HYDROMORPHONE HCL 2 MG TABLET ONE (04:36)
[2017-02-03] MEDS: HYDROMORPHONE HCL 2 MG TABLET PO PRN ×3 (04:51→18:01)
--- NOTE | 2017-02-03 05:27 | NUR ---
DILAUDID 4 MG. ADMINISTERED TO THE PATIENT FOR SEVER PAIN IN RIGHT LOWER ABDOMEN ORDER WILL CONTINUES TO MONITOR THE PATIENT.
[2017-02-03 06:34] LABS: BASOPHILS % (AUTO) 0.4 % (0.0-2.0); EOSINOPHILS # (AUTO) 0.5 /CMM (0.0-0.7); EOSINOPHILS % (AUTO) 5.1 % (0.0-6.0); HEMATOCRIT 38 % (39-51); HEMOGLOBIN 12.9 g/dL (13.5-17.5); LYMPHOCYTES # (AUTO) 2.1 /CMM (0.8-4.8); LYMPHOCYTES % (AUTO) 23.3 % (20.0-44.0); MEAN CORPUSCULAR HEMOGLOBIN 30 PG (26.0-33.0); MEAN CORPUSCULAR HGB CONC 34 g/dl (31.0-36.0); MEAN CORPUSCULAR VOLUME 89 fL (80-96); MONOCYTES # (AUTO) 0.6 /CMM (0.1-1.30); MONOCYTES % (AUTO) 7.1 % (2.0-12.0); NEUTROPHILS # (AUTO) 5.8 /CMM (1.8-8.9); NEUTROPHILS % (AUTO) 64.1 % (43.0-81.0); PLATELET COUNT (AUTO) 193 /CMM (150-450); RDW COEFFICIENT OF VARIATION 13.3 (11.5-15.0); RED BLOOD CELL COUNT(AUTO) 4.28 MIL/uL (4.5-6.0)
[2017-02-03 07:00] LABS: CHOLESTEROL 109 mg/dL (<200); HDL CHOLESTEROL 35 mg/dL (40-60); LDL 68 mg/dL (0-99); TRIGLYCERIDES 71 mg/dL (30-150)
[2017-02-03 07:03] LABS: ALBUMIN 3.3 g/dL (3.4-5.0); BILIRUBIN,TOTAL 0.8 mg/dL (0.2-1.0); CALCIUM, SERUM 8.1 mg/dL (8.5-10.1); TOTAL PROTEIN, SERUM 6.7 g/dL (6.4-8.2)
--- NOTE | 2017-02-03 07:06 | NUR ---
TRY TO CALL THE REGARDING PATIENT GOT ADMITTED IN [facility] BUT NO ANSWER VOICE MAIL SAID NO MESSAGE ACCEPTED AT THIS TIME. WILL ENDORSE TO THE MORNING NURSE TO CALL AGAIN.
[2017-02-03] MEDS ORDERED: HYDR-548 PO (07:57)
[2017-02-03] MEDS ORDERED: BLOO-668 IN (07:57)
[2017-02-03] MEDS ORDERED: CLON0.1T PO (07:57)
[2017-02-03] MEDS ORDERED: BACI1PAC2 TP (07:57)
[2017-02-03] MEDS ORDERED: ALLA266C2 TP (07:57)
[2017-02-03] MEDS ORDERED: INSU100I19 SQ (07:57)
[2017-02-03] MEDS ORDERED: HYDR-552 PO (07:57)
[2017-02-03] MEDS ORDERED: CLOT15CR63 TP (07:57)
[2017-02-03] MEDS ORDERED: ACET-868 PO (07:57)
[2017-02-03] MEDS ORDERED: ENOX40DI SQ (07:57)
[2017-02-03] MEDS ORDERED: MAGN400O6 PO (07:57)
[2017-02-03] MEDS ORDERED: LORA2VIA6 SQ (07:57)
[2017-02-03] MEDS ORDERED: MAG30ORA PO (07:57)
[2017-02-03 08:00] VITALS: BP 140/67
[2017-02-03] MEDS ORDERED: DEXTROSE 50%-WATER 50 ML DISP.SYRIN IV PRN (08:30)
[2017-02-03] MEDS: PANTOPRAZOLE 40 MG TABLET.DR PO SCH (08:42)
[2017-02-03] MEDS: LEVOFLOXACIN (500MG) 500 MG TABLET PO SCH (08:42)
[2017-02-03] MEDS: METRONIDAZOLE 250 MG TABLET PO SCH ×3 (08:42→17:35)
[2017-02-03] MEDS ORDERED: ACETAMINOPHEN 325 MG TABLET PO PRN (10:30)
[2017-02-03] MEDS ORDERED: CLONIDINE HCL 0.1 MG TABLET PO PRN (10:30)
[2017-02-03] MEDS ORDERED: MAGNESIUM HYDROXIDE 30 ML UDC PO PRN (10:30)
[2017-02-03] MEDS ORDERED: MAG HYDROX/AL HYDROX/SIMETH 30 ML UDC PO PRN (10:30)
[2017-02-03] MEDS ORDERED: POTASSIUM CHLORIDE 20 MEQ TAB.PRT.SR PO ONE (10:30)
[2017-02-03] MEDS ORDERED: HYDROMORPHONE HCL 2 MG PO SCH (10:30)
--- NOTE | 2017-02-03 10:30 | NUR ---
GPS RN: PATIENT RESTING IN BED, COMPLIANT AND COOPERATIVE, SEEN BY DR. MOONEY, HAY CATHETER REMOVED PER DR. MOONEY'S ORDER. WITH OUTPUT 350CC DARK YELLOW CLEAR URINE. NO S/S OF ACUTE DISTRESS, WILL CONTINUE TO MONITOR THE PATIENT Q 15 MIN FOR URINE RETENTION.
[2017-02-03] MEDS: LOSARTAN POTASSIUM 25 MG TABLET PO SCH (11:09)
[2017-02-03] MEDS: AMLODIPINE BESYLATE 5 MG TABLET PO SCH ×2 (11:09→17:35)
[2017-02-03] MEDS: PREGABALIN 25 MG CAPSULE PO SCH ×2 (11:09→17:35)
[2017-02-03] MEDS: BLOOD SUGAR DIAGNOSTIC 1 EACH STRIP VI SCH ×3 (11:30→22:03)
--- NOTE | 2017-02-03 11:49 | NUR ---
GPS RN: INSULIN ORDER CLARIFIED WITH DR. MOONEY. NEW ORDER, D/C ROUTINE INSULINE 6UNITS AC, ONLY GIVE SLIDING SCALE COVERAGE. NOTED AND CARRIED OUT.
[2017-02-03] MEDS: INSULIN DETEMIR 100 UNIT/ML CARTRIDGE SQ SCH ×2 (11:53→17:37)
[2017-02-03] MEDS: INSULIN REGULAR, HUMAN 100 UNIT/ML 3 ML VIAL SQ PRN ×2 (11:55→17:37)
[2017-02-03] MEDS ORDERED: BLOOD SUGAR DIAGNOSTIC 1 EACH STRIP IN SCH (12:00)
[2017-02-03] MEDS ORDERED: INSULIN REGULAR, HUMAN 100 UNIT/ML 3 ML VIAL SQ SCH (12:00)
[2017-02-03] MEDS: LORAZEPAM 0.5 MG TABLET PO PRN ×3 (13:37→21:31)
[2017-02-03 16:00] VITALS: BP 121/89
--- NOTE | 2017-02-03 18:18 | NUR ---
GPS RN: PATIENT IS RESTING IN BED, NO S/S OF ACUTE DISTRESS, NO URINE RETENTION, REPORTS VOIDING FREELY X4, NO PAIN OR BURNING ON URINATION. CONTINUE TO MONITOR THE PATIENT.
--- NOTE | 2017-02-03 19:34 | NUR ---
CALLED DR. MOONEY REGARDING PT'S CONDITION. PT FELL ON THE FLOOR. COMPLAINING OF PAIN ON HIS LEFT HIP AND BACK. DR. MOONEY ORDERED X-RAY ON LEFT HIP, PELVIS, LUMBAR SACRAL SPINE. NOTED AND CARRIED OUT.
--- NOTE | 2017-02-03 19:35 | NUR ---
GPS RN: DURING THE SHIFT REPORT PATIENT HAD A FALL EPISODE IN THE DINING ROOM WITNESSED BY THE JULITO LIU AT 1920. PER SENSITIZED PAPER TESTER REPORT PATIENT GOT UP FROM THE CHAIR AND LANDED ON HIS LEFT HIP. PATIENT FOUND ON THE FLOOR, DENIES HITTING HIS HEAD, REPORTS SEVERE PAIN ON HIS LEFT HIP AND LEG AND UNABLE TO MOVE HIS LEG. PEDAL PULSES ARE PRESENT AND STRONG BILATERALLY, NO DISCOLORATION, SKIN IS WARM TO TOUCH ON BILATERAL LOWER EXTREMITIES. PATIENT WAS ADMINISTERED HYDROMORPHONE 4MG PRN FOR C/O PAIN TO HIS LOWER ABDOMEN AND LOWER BACK 12/24 AT 1801. THE BURIAL VAULT DELIVERER AND INSTALLER NURSE ASSUMED THE CARE AND CONTACTED THE PRIMARY PHYSICIAN.
[2017-02-03 20:00] VITALS: BP 157/57
[2017-02-03] MEDS ORDERED: OLANZAPINE 10 MG VIAL IM ONE ×2 (21:43→22:00)
[2017-02-03] MEDS: TEMAZEPAM 7.5 MG CAPSULE PO PRN (21:51)
[2017-02-03] MEDS: QUETIAPINE FUMARATE 100 MG TABLET PO SCH (21:51)
[2017-02-03] MEDS: TAMSULOSIN 0.4 MG CAP.SR.24H PO SCH (21:51)
--- NOTE | 2017-02-03 21:57 | NUR ---
GPS/RN-PATIENT IS DEMANDING FOR MORE PAIN MEDICATION.EXPLAINED TO HIM THAT HE JUST TOOK HIS MEDS.AND THE NEXT DOSE IS DUE IN 4 HRS. HE BECAME AGITATED,STARTED SCREAMING AND WAS COMBATIVE AT STAFF.CALLED DR. MOONEY AND INFORMED HIM OF BI.HE ORDERED DILAUDID 4MG.PO X1 DOSE NOW.
[2017-02-03] MEDS ORDERED: HYDROMORPHONE HCL 2 MG TABLET PO ONE (22:00)
[2017-02-03] MEDS: *INSULIN REGULAR(HUMULIN R)HUM 100 UNIT/ML VIAL SQ PRN (22:06)
--- NOTE | 2017-02-03 22:11 | NUR ---
GPS/RN-PATIENT CONT.TO BE AGITATED, COMBATIVE AND VERBALLY ABUSIVE AT STAFF.CALLED DR. VALDEZ INFORMED HIM OF PTS. BEHAVIOR.HE ORDERED ZYPREXA 10MG.IM X1 NOW.NOTED AND CARRIED OUT.
[2017-02-04] MEDS ORDERED: HYDROMORPHONE HCL 2 MG TABLET ONE (02:06)
[2017-02-04] MEDS: HYDROMORPHONE HCL 2 MG TABLET PO PRN ×5 (02:15→20:27)
--- NOTE | 2017-02-04 02:15 | NUR ---
GPS-RN PT COMPLAINING OF PAIN ON HIS LOWER BACK IN A SCALE OF 8/10. DILAUDID 4MG PO GIVEN ORDERED. WILL CONTINUE TO MONITOR FOR PAIN.
[2017-02-04] MEDS: PANTOPRAZOLE 40 MG TABLET.DR PO SCH (07:51)
--- NOTE | 2017-02-04 07:54 | NUR ---
[id number]: GAVE DILAUDID 4 MG PO DUE TO GENERALIZED PAIN 11/23 UPON PT REQUEST AND WILL CONTINUE TO MONITOR FOR EFFECTIVENESS OF MEDICATION.
[2017-02-04] MEDS: INSULIN REGULAR, HUMAN 100 UNIT/ML 3 ML VIAL SQ PRN ×3 (07:59→16:46)
[2017-02-04] MEDS: BLOOD SUGAR DIAGNOSTIC 1 EACH STRIP VI SCH ×4 (07:59→22:14)
--- NOTE | 2017-02-04 07:59 | NUR ---
[id number]: BLOOD SUGAR IS 216 MG/DL AND GAVE 6 UNITS OF REGULAR INSULIN.
[2017-02-04] MEDS: INSULIN DETEMIR 100 UNIT/ML CARTRIDGE SQ SCH ×2 (08:00→16:45)
[2017-02-04] MEDS: LOSARTAN POTASSIUM 25 MG TABLET PO SCH (08:05)
[2017-02-04] MEDS: METRONIDAZOLE 250 MG TABLET PO SCH ×3 (08:05→16:32)
[2017-02-04] MEDS: LEVOFLOXACIN (500MG) 500 MG TABLET PO SCH (08:05)
[2017-02-04] MEDS: PREGABALIN 25 MG CAPSULE PO SCH ×2 (08:05→16:32)
[2017-02-04] MEDS: AMLODIPINE BESYLATE 5 MG TABLET PO SCH ×2 (08:06→16:33)
[2017-02-04 08:12] VITALS: BP 95/69
[2017-02-04] MEDS: BUPROPION XL 150 MG TAB.ER.24 PO SCH (08:40)
[2017-02-04] MEDS ORDERED: MAGNESIUM CITRATE 296 ML BOTTLE PO ONE (11:30)
--- NOTE | 2017-02-04 11:54 | NUR ---
IOY-ZS-[id number]: GAVE DILAUDID 4 MG PO DUE TO GENERALIZED PAIN 11/23 UPON PT REQUEST AND WILL CONTINUE TO MONITOR FOR EFFECTIVENESS OF MEDICATION.
--- NOTE | 2017-02-04 12:15 | NUR ---
OWY-QK-[id number]: GAVE CITRATE OF MAGNESIA 1 BOTTLE= 296 ML FOR CONSTIPATION UPON PT REQUEST AND WILL CONTINUE TO MONITOR FOR EFFECTIVENESS OF MEDICATION.
--- NOTE | 2017-02-04 12:31 | NUR ---
FOS-ST-[id number]: BLOOD SUGAR IS 245 MG/DL AND GAVE 6 UNITS OF REGULAR INSULIN
[2017-02-04 15:42] VITALS: BP 113/84
--- NOTE | 2017-02-04 16:15 | NUR ---
CTW-DU-PCOBX: GAVE DILAUDID 4 MG PO DUE TO GENERALIZED PAIN 11/23 UPON PT REQUEST AND WILL CONTINUE TO MONITOR FOR EFFECTIVENESS OF MEDICATION.
[2017-02-04] MEDS: LORAZEPAM 0.5 MG TABLET PO PRN (17:56)
--- NOTE | 2017-02-04 17:56 | NUR ---
VVY-TI-[id number]: GAVE ATIVAN 0.5 MF PO DUE TO INCREASED ANXIETY UPON PT REQUEST AND WILL CONTINUE TO MONITOR FOR EFFECTIVENESS OF MEDICATION
[2017-02-04 19:58] VITALS: BP 132/89
[2017-02-04] MEDS: TAMSULOSIN 0.4 MG CAP.SR.24H PO SCH (21:17)
[2017-02-04] MEDS: QUETIAPINE FUMARATE 100 MG TABLET PO SCH (21:17)
[2017-02-04] MEDS: *INSULIN REGULAR(HUMULIN R)HUM 100 UNIT/ML VIAL SQ PRN (21:32)
[2017-02-04] MEDS: TEMAZEPAM 7.5 MG CAPSULE PO PRN (22:24)
[2017-02-05] MEDS: HYDROMORPHONE HCL 2 MG TABLET PO PRN ×6 (00:35→21:54)
--- NOTE | 2017-02-05 06:54 | NUR ---
RN NOTES PATIENT IN BED, RESTING COMFORTABLY, NO SOB, NO DISTRESS, NO BEHAVIOR DISTURBANCE DURING SHIFT,DENIES SI/HI AT THIS TIME REMAIND BED SITE 1:1 SITTER FOR SAFETY.
[2017-02-05] MEDS: BLOOD SUGAR DIAGNOSTIC 1 EACH STRIP VI SCH ×4 (07:49→21:27)
[2017-02-05] MEDS: INSULIN REGULAR, HUMAN 100 UNIT/ML 3 ML VIAL SQ PRN ×3 (07:52→16:47)
--- NOTE | 2017-02-05 07:52 | NUR ---
NWG-[id number]: BLOOD SUGAR IS 149 MG/DL AND GAVE 2 UNITS OF REGULAR INSULIN.
[2017-02-05] MEDS: PANTOPRAZOLE 40 MG TABLET.DR PO SCH (07:58)
[2017-02-05] MEDS: BUPROPION XL 150 MG TAB.ER.24 PO SCH (08:02)
[2017-02-05] MEDS: PREGABALIN 25 MG CAPSULE PO SCH ×2 (08:02→16:07)
[2017-02-05] MEDS: METRONIDAZOLE 250 MG TABLET PO SCH ×3 (08:03→16:08)
[2017-02-05] MEDS: LEVOFLOXACIN (500MG) 500 MG TABLET PO SCH (08:03)
[2017-02-05] MEDS: LOSARTAN POTASSIUM 25 MG TABLET PO SCH (08:03)
[2017-02-05] MEDS: INSULIN DETEMIR 100 UNIT/ML CARTRIDGE SQ SCH ×2 (08:05→16:50)
[2017-02-05] MEDS: AMLODIPINE BESYLATE 5 MG TABLET PO SCH ×2 (08:07→16:08)
[2017-02-05 08:22] VITALS: BP 149/99
--- NOTE | 2017-02-05 09:40 | NUR ---
AAT-IV-[id number]: GAVE DILAUDID 4 MG PO DUE TO GENERALIZED PAIN 11/23 UPON PT REQUEST AND WILL CONTINUE TO MONITOR FOR EFFECTIVENESS OF MEDICATION.
--- NOTE | 2017-02-05 12:49 | NUR ---
EBE-YJ-[id number]: BLOOD SUGAR IS 161 MG/DL AND GAVE 3 UNITS OF REGULAR INSULIN .
--- NOTE | 2017-02-05 13:53 | NUR ---
QKN-BH-[id number]: GAVE DILAUDID 4 MG PO DUE TO GENERALIZED PAIN 11/23 UPON PT REQUEST AND WILL CONTINUE TO MONITOR FOR EFFECTIVENESS OF MEDICATION.
--- NOTE | 2017-02-05 14:57 | NUR ---
DPE-EB-[id number]: NOTIFIED DR. MOONEY ABOUT PT COMPLAINING OF LOWER ABDOMINAL PAIN. NO NEWS ORDERED AT THIS TIME.
[2017-02-05 15:41] VITALS: BP 130/80
--- NOTE | 2017-02-05 16:33 | NUR ---
Initial Discharge Note: Patient resides with his daughter Janis; [address] [place] [address] / [phone]. Patient would like to go back home upon discharge. SW manager of internal spoke to pt.s daughter and completed psychosocial assessment over the phone because patient was sleeping. Daughter stated it is fine for pt. to come back home with her. patient will be offered referrals for nicotine anonymous. SW to communicate with Patients family emergency contact regarding most appropriate discharge plan. SW to help form a safe and proper discharge.
--- NOTE | 2017-02-05 17:53 | NUR ---
BIN-BQ-[id number]: GAVE DILAUDID 4 MG PO DUE TO GENERALIZED PAIN 11/23 UPON PT REQUEST AND WILL CONTINUE TO MONITOR FOR EFFECTIVENESS OF MEDICATION.
[2017-02-05 19:46] VITALS: BP 122/76
[2017-02-05] MEDS: QUETIAPINE FUMARATE 100 MG TABLET PO SCH (21:20)
[2017-02-05] MEDS: TAMSULOSIN 0.4 MG CAP.SR.24H PO SCH (21:20)
[2017-02-05] MEDS: *INSULIN REGULAR(HUMULIN R)HUM 100 UNIT/ML VIAL SQ PRN (21:26)
[2017-02-06] MEDS: HYDROMORPHONE HCL 2 MG TABLET PO PRN ×6 (02:02→22:21)
[2017-02-06] MEDS: LORAZEPAM 0.5 MG TABLET PO PRN (04:49)
--- NOTE | 2017-02-06 04:49 | NUR ---
GPS RN NOTE, PATIENT HAS A COMPLAINT OF FEELING ANXIOUS AND IS REQUESTING ATIVAN AT THIS TIME. PATIENT VITAL SIGNS ARE STABLE. GAVE ATIVAN 0.5MG PO Q6HR PRN ORDERED. WILL REASSESS FOR ANXIETY AND I WILL CONTINUE TO MONITOR THIS PATIENT.
--- NOTE | 2017-02-06 06:07 | NUR ---
GPS RN NOTE, PATIENT HAS A COMPLAINT OF LOWER BACK PAIN AT 8 OUT 10 ON THE PAIN SCALE AND IS REQUESTING HYDROMORPHONE AT THIS TIME. PATIENT VITAL SIGNS ARE STABLE. GAVE HYDROMORPHONE 4 MG PO Q4HR PRN ORDERED. WILL REASSESS PAIN AND I WILL CONTINUE TO MONITOR THIS PATIENT.
[2017-02-06 06:51] LABS: CALCIUM, SERUM 8.6 mg/dL (8.5-10.1); CREATININE 1.1 mg/dL (0.6-1.3); POTASSIUM 3.2 mmol/L (3.5-5.1)
[2017-02-06 06:54] LABS: BASOPHILS % (AUTO) 0.4 % (0.0-2.0); EOSINOPHILS # (AUTO) 0.4 /CMM (0.0-0.7); EOSINOPHILS % (AUTO) 6.3 % (0.0-6.0); HEMATOCRIT 36 % (39-51); HEMOGLOBIN 12.4 g/dL (13.5-17.5); LYMPHOCYTES # (AUTO) 2.7 /CMM (0.8-4.8); LYMPHOCYTES % (AUTO) 39.8 % (20.0-44.0); MEAN CORPUSCULAR HEMOGLOBIN 30 PG (26.0-33.0); MEAN CORPUSCULAR HGB CONC 34 g/dl (31.0-36.0); MEAN CORPUSCULAR VOLUME 89 fL (80-96); MONOCYTES # (AUTO) 0.6 /CMM (0.1-1.30); MONOCYTES % (AUTO) 8.7 % (2.0-12.0); NEUTROPHILS % (AUTO) 44.8 % (43.0-81.0); PLATELET COUNT (AUTO) 217 /CMM (150-450); RDW COEFFICIENT OF VARIATION 13.3 (11.5-15.0); WHITE BLOOD COUNT (AUTO) 6.7 K/uL (4.3-11.0)
[2017-02-06 08:00] VITALS: BP 93/64
[2017-02-06] MEDS: INSULIN REGULAR, HUMAN 100 UNIT/ML 3 ML VIAL SQ PRN ×3 (08:31→17:25)
--- NOTE | 2017-02-06 08:31 | NUR ---
OGP-EE-[id number]: BLOOD SUGAR IS 196 MG/DL AND GAVE 3 UNITS OF REGULAR INSULIN.
[2017-02-06] MEDS: INSULIN DETEMIR 100 UNIT/ML CARTRIDGE SQ SCH ×2 (08:32→17:04)
[2017-02-06] MEDS: LEVOFLOXACIN (500MG) 500 MG TABLET PO SCH (08:48)
[2017-02-06] MEDS: PREGABALIN 25 MG CAPSULE PO SCH ×2 (08:48→16:59)
[2017-02-06] MEDS: PANTOPRAZOLE 40 MG TABLET.DR PO SCH (08:48)
[2017-02-06] MEDS: METRONIDAZOLE 250 MG TABLET PO SCH ×3 (08:49→16:59)
[2017-02-06] MEDS: BLOOD SUGAR DIAGNOSTIC 1 EACH STRIP VI SCH ×4 (08:49→22:12)
[2017-02-06] MEDS: LOSARTAN POTASSIUM 25 MG TABLET PO SCH (08:49)
[2017-02-06] MEDS: AMLODIPINE BESYLATE 5 MG TABLET PO SCH (08:50)
[2017-02-06] MEDS: BUPROPION XL 150 MG TAB.ER.24 PO SCH (08:51)
--- NOTE | 2017-02-06 10:07 | NUR ---
IAD-AV-OSABY: GAVE DILAUDID 4 MG PO DUE TO GENERALIZED PAIN 11/23 UPON PT REQUEST AND WILL CONTINUE TO MONITOR FOR EFFECTIVENESS OF MEDICATION.
--- NOTE | 2017-02-06 12:05 | NUR ---
JQB-ND-[id number]: BLOOD SUGAR IS 201 MG/DL AND GAVE 6 UNITS OF REGULAR INSULIN
[2017-02-06] MEDS ORDERED: POTASSIUM CHLORIDE 20 MEQ TAB.PRT.SR PO ONE (13:00)
--- NOTE | 2017-02-06 14:07 | NUR ---
CGP-LW-MEYSO: GAVE DILAUDID 4 MG PO DUE TO GENERALIZED PAIN 11/23 UPON PT REQUEST AND WILL CONTINUE TO MONITOR FOR EFFECTIVENESS OF MEDICATION
[2017-02-06 16:10] VITALS: BP 102/64
--- NOTE | 2017-02-06 17:25 | NUR ---
TUL-FQ-LVPTM: BLOOD SUGAR IS 161 MG/DL AND GAVE 3 UNITS OF REGULAR INSULIN
--- NOTE | 2017-02-06 18:16 | NUR ---
ZCU-XY-[id number]: GAVE DILAUDID 4 MG PO DUE TO GENERALIZED PAIN 11/23 UPON PT REQUEST AND WILL CONTINUE TO MONITOR FOR EFFECTIVENESS OF MEDICATION
[2017-02-06 20:39] VITALS: BP 121/86
[2017-02-06] MEDS: QUETIAPINE FUMARATE 100 MG TABLET PO SCH (21:37)
[2017-02-06] MEDS: TAMSULOSIN 0.4 MG CAP.SR.24H PO SCH (21:37)
[2017-02-06] MEDS: *INSULIN REGULAR(HUMULIN R)HUM 100 UNIT/ML VIAL SQ PRN (22:11)
[2017-02-06] MEDS: TEMAZEPAM 7.5 MG CAPSULE PO PRN (23:21)
[2017-02-07] MEDS: HYDROMORPHONE HCL 2 MG TABLET PO PRN ×6 (02:24→22:46)
--- NOTE | 2017-02-07 06:53 | NUR ---
RN NOTES PATIENT IN BED, RESTING COMFORTABLY, NO SOB, NO DISTRESS, NO BEHAVIOR DISTURBANCE DURING SHIFT,DENIES SI/HI AT THIS TIME, REMAIND BED SITE 1:1 SITTER FOR SAFETY.
[2017-02-07] MEDS: BLOOD SUGAR DIAGNOSTIC 1 EACH STRIP VI SCH ×4 (07:37→21:52)
[2017-02-07 07:41] LABS: BASOPHILS % (AUTO) 0.5 % (0.0-2.0); EOSINOPHILS # (AUTO) 0.5 /CMM (0.0-0.7); EOSINOPHILS % (AUTO) 6.7 % (0.0-6.0); HEMATOCRIT 38 % (39-51); HEMOGLOBIN 12.9 g/dL (13.5-17.5); MEAN CORPUSCULAR HEMOGLOBIN 30 PG (26.0-33.0); MEAN CORPUSCULAR HGB CONC 34 g/dl (31.0-36.0); MEAN CORPUSCULAR VOLUME 89 fL (80-96); MONOCYTES # (AUTO) 0.8 /CMM (0.1-1.30); MONOCYTES % (AUTO) 10.7 % (2.0-12.0); NEUTROPHILS # (AUTO) 3.2 /CMM (1.8-8.9); NEUTROPHILS % (AUTO) 42.1 % (43.0-81.0); PLATELET COUNT (AUTO) 220 /CMM (150-450); RDW COEFFICIENT OF VARIATION 13.3 (11.5-15.0); RED BLOOD CELL COUNT(AUTO) 4.29 MIL/uL (4.5-6.0); WHITE BLOOD COUNT (AUTO) 7.5 K/uL (4.3-11.0)
[2017-02-07 08:00] LABS: CALCIUM, SERUM 8.8 mg/dL (8.5-10.1); POTASSIUM 3.5 mmol/L (3.5-5.1)
[2017-02-07] MEDS: INSULIN REGULAR, HUMAN 100 UNIT/ML 3 ML VIAL SQ PRN ×3 (08:12→16:59)
[2017-02-07] MEDS: AMLODIPINE BESYLATE 5 MG TABLET PO SCH (08:15)
[2017-02-07] MEDS: PREGABALIN 25 MG CAPSULE PO SCH ×2 (08:15→16:18)
[2017-02-07] MEDS: LOSARTAN POTASSIUM 25 MG TABLET PO SCH (08:16)
[2017-02-07] MEDS: METRONIDAZOLE 250 MG TABLET PO SCH ×3 (08:16→16:18)
[2017-02-07] MEDS: PANTOPRAZOLE 40 MG TABLET.DR PO SCH (08:16)
[2017-02-07] MEDS: BUPROPION XL 150 MG TAB.ER.24 PO SCH (08:16)
[2017-02-07] MEDS: INSULIN DETEMIR 100 UNIT/ML CARTRIDGE SQ SCH ×2 (08:30→17:01)
[2017-02-07 08:53] VITALS: BP 109/79
--- NOTE | 2017-02-07 10:41 | NUR ---
SWY-YK-[id number]: GAVE DILAUDID 4 MG PO DUE TO LEFT ABDOMINAL PAIN 11/23 UPON PT REQUEST AND WILL CONTINUE TO MONITOR FOR EFFECTIVENESS OF MEDICATION
[2017-02-07] MEDS: FLUOXETINE HCL 20 MG CAPSULE PO SCH (12:02)
--- NOTE | 2017-02-07 14:43 | NUR ---
LFK-HM-FCQHC: GAVE DILAUDID 4 MG PO DUE TO LEFT ABDOMINAL PAIN 11/23 UPON PT REQUEST AND WILL CONTINUE TO MONITOR FOR EFFECTIVENESS OF MEDICATION
[2017-02-07 16:00] VITALS: BP 133/88
--- NOTE | 2017-02-07 17:15 | NUR ---
RN-CO: Patient remained calm and cooperative to care. He is participating in groups, denied suicidal ideation. Discontinued 1:1, noted and carried out.
--- NOTE | 2017-02-07 18:43 | NUR ---
ANS-VV-[id number]: GAVE DILAUDID 4 MG PO DUE TO LEFT ABDOMINAL PAIN 11/23 UPON PT REQUEST AND WILL CONTINUE TO MONITOR FOR EFFECTIVENESS OF MEDICATION
[2017-02-07 20:20] VITALS: BP 143/96
[2017-02-07] MEDS: TAMSULOSIN 0.4 MG CAP.SR.24H PO SCH (21:15)
[2017-02-07] MEDS: QUETIAPINE FUMARATE 100 MG TABLET PO SCH (21:15)
[2017-02-07] MEDS: *INSULIN REGULAR(HUMULIN R)HUM 100 UNIT/ML VIAL SQ PRN (21:53)
[2017-02-07] MEDS: TEMAZEPAM 7.5 MG CAPSULE PO PRN (23:31)
[2017-02-08] MEDS: HYDROMORPHONE HCL 2 MG TABLET PO PRN ×5 (03:58→20:28)
[2017-02-08] MEDS: BLOOD SUGAR DIAGNOSTIC 1 EACH STRIP VI SCH ×4 (07:43→21:58)
[2017-02-08] MEDS: INSULIN REGULAR, HUMAN 100 UNIT/ML 3 ML VIAL SQ PRN ×4 (07:49→22:57)
[2017-02-08] MEDS: INSULIN DETEMIR 100 UNIT/ML CARTRIDGE SQ SCH ×2 (08:13→16:44)
[2017-02-08] MEDS: PREGABALIN 25 MG CAPSULE PO SCH ×2 (08:14→16:20)
--- NOTE | 2017-02-08 08:14 | NUR ---
[id number]-WQ-[id number]: GAVE DILAUDID 4 MG PO DUE TO LEFT ABDOMINAL PAIN 11/23 UPON PT REQUEST AND WILL CONTINUE TO MONITOR FOR EFFECTIVENESS OF MEDICATION
[2017-02-08] MEDS: BUPROPION XL 150 MG TAB.ER.24 PO SCH (08:15)
[2017-02-08] MEDS: METRONIDAZOLE 250 MG TABLET PO SCH ×3 (08:15→16:20)
[2017-02-08] MEDS: LOSARTAN POTASSIUM 25 MG TABLET PO SCH (08:15)
[2017-02-08] MEDS: PANTOPRAZOLE 40 MG TABLET.DR PO SCH (08:15)
[2017-02-08] MEDS: AMLODIPINE BESYLATE 5 MG TABLET PO SCH (08:15)
[2017-02-08] MEDS: FLUOXETINE HCL 20 MG CAPSULE PO SCH ×2 (08:40→12:14)
[2017-02-08 09:12] VITALS: BP 123/89
--- NOTE | 2017-02-08 11:21 | NUR ---
PALMER called pt's daughter Janis [phone], who confirmed that she or her mother will be able to pick patient up at 1pm tomorrow for discharge.
[2017-02-08 16:40] VITALS: BP 138/92
[2017-02-08 20:00] VITALS: BP 119/86
--- NOTE | 2017-02-08 20:28 | NUR ---
GPS/RN NOTE: UP TO NURSE'S STATION C/O ACHY ABDOMINAL PAIN, 6/10 ON PAIN SCALE, DILAUDID 4 MG TAB PO GIVEN.
[2017-02-08] MEDS: TAMSULOSIN 0.4 MG CAP.SR.24H PO SCH (21:35)
[2017-02-08] MEDS: QUETIAPINE FUMARATE 100 MG TABLET PO SCH (21:35)
[2017-02-08] MEDS: TEMAZEPAM 7.5 MG CAPSULE PO PRN (21:46)
--- NOTE | 2017-02-08 21:46 | NUR ---
GPS/RN NOTE: PATIENT C/O INSOMNIA, TEMAZEPAM 7.5 MG CAP 1 PO GIVEN.
--- NOTE | 2017-02-08 22:57 | NUR ---
GPS/RN NOTE: ACCUCHECK 179 MG/DL, 3 UNITS REG. INSULIN SC ADMINISTERED.
[2017-02-09] MEDS: HYDROMORPHONE HCL 2 MG TABLET PO PRN ×3 (02:22→10:37)
--- NOTE | 2017-02-09 02:23 | NUR ---
GPS/RN NOTE: C/O ABDOMINAL PAIN, 7/10 ON PAIN SCALE, DILAUDID 4 MG PO GIVEN.
--- NOTE | 2017-02-09 05:43 | NUR ---
GPS/RN NOTE: PATIENT STATED THAT HE DOES NOT TAKE VACCINATION. PATIENT SAID, " I DON'T TAKE THAT."
--- NOTE | 2017-02-09 06:37 | NUR ---
GPS/RN NOTE: DILAUDID 4 MG TAB PO GIVEN.
[2017-02-09 08:00] VITALS: BP 115/77
[2017-02-09] MEDS ORDERED: FLUOXETINE HCL 20 MG CAPSULE PO SCH (09:00)
[2017-02-09] MEDS: BLOOD SUGAR DIAGNOSTIC 1 EACH STRIP VI SCH ×2 (10:27→13:18)
[2017-02-09] MEDS: BUPROPION XL 150 MG TAB.ER.24 PO SCH (10:31)
[2017-02-09] MEDS: PREGABALIN 25 MG CAPSULE PO SCH (10:31)
[2017-02-09] MEDS: FLUOXETINE HCL 20 MG CAPSULE PO SCH (10:32)
[2017-02-09] MEDS: AMLODIPINE BESYLATE 5 MG TABLET PO SCH (10:32)
[2017-02-09] MEDS: METRONIDAZOLE 250 MG TABLET PO SCH ×2 (10:32→13:00)
[2017-02-09 10:33] VITALS: BP 115/77
[2017-02-09] MEDS: LOSARTAN POTASSIUM 25 MG TABLET PO SCH (10:33)
[2017-02-09] MEDS: PANTOPRAZOLE 40 MG TABLET.DR PO SCH (10:33)
[2017-02-09] MEDS: INSULIN DETEMIR 100 UNIT/ML CARTRIDGE SQ SCH (10:35)
--- NOTE | 2017-02-09 10:37 | NUR ---
RN NOTES ADMINISTERED DILAUDID 4 MG PO PRN FOR GENERALIZED PAIN 11/23, PER PATIENT REQUEST, V/S TAKEN BP 115/ 77, P-84, ENCOURAGED TO INCREASE FLUID INTAKE. CONTINUED MONITORING.
[2017-02-09] MEDS: INSULIN REGULAR, HUMAN 100 UNIT/ML 3 ML VIAL SQ PRN (13:20)
--- NOTE | 2017-02-09 13:30 | NUR ---
WAFER POLISHER NOTES PATIENT DISCHARGE AT THIS TIME GOING HOME. PATIENT A/O X3/4, MED COMPLIANT, V/S STABLE, MEDICALLY STABLE, NO C/O PAIN AT THIS TIME. MED RECONCILIATION , AND DISCHARGE ORDER REVIEWED AND EXPLAINED TO PATIENT. PATIENT VERBALIZED UNDERSTANDING. BELONGING RETURNED BACK TO THE PATIENT . PATIENT SIGN PAPERWORK, REFUSED PICTURE TO BE TAKEN. PATIENT SIGNAL OPERATOR LINGUIST BY DAUGHTER NAME SHIMA PHONE # [phone]. PATIENT WILL FOLLOW PRIMARY MD MOONEY, AND PSYCHIATRIST DR BERGER. ESCORTED PATENT TO THE [facility] FOR SAFETY..
--- NOTE | 2017-02-12 10:50 | NUR ---
Discharge Note Patient was discharged home to [address] [place] [address] / [phone] via private transportation at 1pm. Patient was picked up by his daughter, Janis [phone], in her vehicle. Patient will follow up with his psychiatrist, Dr. Pompa [address] [facility] [address], [place], [place] [id number] [phone] on February 19 2017 at 3pm. Patient will also follow up with his artificial intelligence specialist, Dr. Nolasco [address] [facility] [address], [place] [address] the following week. outside maintenance worker provided referrals for patient to attend a Nicotine Anonymous Group meeting on , 02/15 at 7pm at [address] [facility]. outside maintenance worker will also follow up and provide resources for community involvement for patient as he had stated he would like to get involved in volunteer work.
== END 2017-02-09 13:40 | disposition home or self-care (01) | DRG 885 ==
LOC: GPS 20:45
PROVIDERS: ADMIT Psychiatry & Neurology Psychosomatic Medicine; ATTEND Psychiatry & Neurology Psychosomatic Medicine
DX: F32.3 Major depressive disorder, single episode, severe with psychotic features (principal); N18.3 Chronic kidney disease, stage 3 (moderate); E11.22 Type 2 diabetes mellitus with diabetic chronic kidney disease; F03.90 Unspecified dementia, unspecified severity, without behavioral disturbance, psychotic disturbance, mood disturbance, and anxiety; I48.91 Unspecified atrial fibrillation; F29 Unspecified psychosis not due to a substance or known physiological condition; R10.9 Unspecified abdominal pain; G89.4 Chronic pain syndrome; I12.9 Hypertensive chronic kidney disease with stage 1 through stage 4 chronic kidney disease, or unspecified chronic kidney disease; Z81.8 Family history of other mental and behavioral disorders; Z79.899 Other long term (current) drug therapy
CPT/HCPCS: 36415; 72100-TC; 73502; 74000-TC; 80048-TC; 80053-TC; 80061-TC; 82962-TC; 83735-TC; 85025-TC; A4606; J1815; J3490; Z7610

== ENCOUNTER 2017-02-22 13:51 | Inpatient (IN) | payer MEDICARE ==
[~2017-02-22] VITALS: Ht 172.7 cm; Wt 99.8 kg
[~2017-02-22 13:51] MED LIST changes: +ACET-868 PO; +ALLA266C2 TP; +BACI1PAC2 TP; +BLOO-668 IN; +CLON0.1T PO; +CLOT15CR63 TP; +ENOX40DI SQ; +HYDR-548 PO; +HYDR-552 PO; +INSU100I19 SQ; -INSU3INS6 SUBCUT; +LORA2VIA6 SQ; +MAG30ORA PO; +MAGN400O6 PO; +NITROGLYCERIN PACKET 1 GM PACKET TOP SCH
[2017-02-22 14:15] LABS: BASOPHILS # (AUTO) 0.4 /CMM (0.0-0.2); BASOPHILS % (AUTO) 2.3 % (0.0-2.0); EOSINOPHILS % (AUTO) 0.1 % (0.0-6.0); HEMATOCRIT 44 % (39-51); HEMOGLOBIN 14.6 g/dL (13.5-17.5); LYMPHOCYTES # (AUTO) 2.4 /CMM (0.8-4.8); MEAN CORPUSCULAR HEMOGLOBIN 30 PG (26.0-33.0); MEAN CORPUSCULAR HGB CONC 33 g/dl (31.0-36.0); MEAN CORPUSCULAR VOLUME 88 fL (80-96); MONOCYTES % (AUTO) 5.5 % (2.0-12.0); NEUTROPHILS # (AUTO) 14.7 /CMM (1.8-8.9); NEUTROPHILS % (AUTO) 79.1 % (43.0-81.0); PLATELET COUNT (AUTO) 260 /CMM (150-450); RDW COEFFICIENT OF VARIATION 11.9 (11.5-15.0); RED BLOOD CELL COUNT(AUTO) 4.94 MIL/uL (4.5-6.0); WHITE BLOOD COUNT (AUTO) 18.5 K/uL (4.3-11.0)
[2017-02-22] MEDS ORDERED: HYDROMORPHONE 1 MG/1 ML DISP.SYRIN ONE ×3 (14:16→17:50)
[2017-02-22] MEDS ORDERED: ONDANSETRON HCL/PF 4 MG/2 ML VIAL ONE (14:16)
[2017-02-22] MEDS ORDERED: ONDANSETRON HCL/PF 4 MG/2 ML VIAL IVP ONE (14:30)
[2017-02-22] MEDS ORDERED: IV NS 0.9% 1,000 ML BAG IV ONE ×2 (14:30→16:30)
[2017-02-22] MEDS ORDERED: HYDROMORPHONE INJ 2 MG/ML DISP.SYRIN IV ONE ×2 (14:30→15:30)
[2017-02-22 14:31] LABS: ALBUMIN 3.8 g/dL (3.4-5.0); BILIRUBIN,DIRECT 0.1 mg/dL (0.0-0.2); BILIRUBIN,TOTAL 0.6 mg/dL (0.2-1.0); CALCIUM, SERUM 9.6 mg/dL (8.5-10.1); CREATININE 1.4 mg/dL (0.6-1.3); POTASSIUM 3.6 mmol/L (3.5-5.1); TOTAL PROTEIN, SERUM 7.6 g/dL (6.4-8.2)
[2017-02-22] MEDS ORDERED: KETOROLAC TROMETHAMINE 15 MG/ML VIAL ONE (14:43)
[2017-02-22 14:51] LABS: ABG BASE EXCESS -0.7 mmol/L; ABG OXYGEN SATURATION 96.9 % (92.0-98.5); ABG PCO2 29.2 mmHg (35.0-45.0); ABG PH 7.486 (7.350-7.450); ABG PO2 87.3 mmHg (75.0-100.0); COHb 0.7 % (0.5-1.5); MetHb 0.5 % (0.0-1.5); O2Hb 95.7 % (94.0-97.0); SITE, ABG A-Line; VENT MODE, BG RA
[2017-02-22] MEDS ORDERED: KETOROLAC TROMETHAMINE INJ 30 MG/ML VIAL IV ONE (15:00)
[2017-02-22 15:04] LABS: APPEARANCE,URINE Clear (CLEAR); BILIRUBIN,URINE Negative (NEGATIVE); BLOOD, URINE Trace-intact Ery/uL (NEGATIVE); COLOR,URINE Yellow (YELLOW); KETONES,URINE Trace (NEGATIVE); LEUKOCYTE ESTERASE ,URINE Negative (NEGATIVE); NITRITE, URINE Negative (NEGATIVE); PH,URINE 5.5 (5.0-8.0); PROTEIN,URINE Negative (NEGATIVE); UGLUCOSE >=1000 mg/dL (NEGATIVE); UROBILINOGEN,URINE 0.2 EU/dL (0.2)
[2017-02-22 15:06] LABS: BACTERIA,URINE Few /HPF (None Seen); SQUAMOUS EPITHELIAL CELL,UR Rare /HPF (None Seen); WBC,URINE 0-2 /HPF (0-3)
[2017-02-22] MEDS ORDERED: IOHEXOL-350 100 ML VIAL IV ONE (16:15)
[2017-02-22] MEDS ORDERED: IV NS 0.9% 250 ML IV ONE (16:15)
[2017-02-22] MEDS ORDERED: INSULIN ASPART/LISPRO 100 UNIT/ML CARTRIDGE SQ STA (16:48)
[2017-02-22] MEDS ORDERED: INSULIN REGULAR, HUMAN 100 UNIT/ML 10 ML VIAL ONE (17:20)
[2017-02-22] MEDS ORDERED: FLUO20CA36 PO (17:31)
[2017-02-22] MEDS ORDERED: TEST200V3 IM (17:33)
[2017-02-22] MEDS ORDERED: CIPROFLOXACIN IV RTU 400 MG in PREMIX 1 EA IV STA (17:54)
[2017-02-22] MEDS ORDERED: HYDROMORPHONE 1 MG/1 ML DISP.SYRIN IV ONE (18:00)
[2017-02-22] MEDS ORDERED: METRONIDAZOLE 500MG/ NS 100ML 100 ML IV ONE (18:00)
[2017-02-22 20:00] VITALS: BP 158/105
[2017-02-22] MEDS ORDERED: DEXTROSE 50%-WATER 50 ML DISP.SYRIN IV PRN ×2 (20:00)
[2017-02-22] MEDS ORDERED: ACETAMINOPHEN 325 MG TABLET PO PRN (20:00)
[2017-02-22] MEDS ORDERED: MORPHINE SULFATE INJ 4 MG/ML DISP.SYRIN IV PRN (20:00)
[2017-02-22] MEDS ORDERED: MORPHINE SULFATE INJ 2 MG/ML DISP.SYRIN IV PRN (20:00)
[2017-02-22] MEDS ORDERED: ONDANSETRON HCL/PF 4 MG/2 ML VIAL IVP PRN (20:00)
[2017-02-22] MEDS ORDERED: INSULIN REGULAR, HUMAN 100 UNIT/ML 3 ML VIAL SQ PRN (20:00)
[2017-02-22] MEDS ORDERED: IV NS 0.9% 1,000 ML BAG IV PRN (20:00)
[2017-02-22] MEDS: HYDROMORPHONE INJ 2 MG/ML DISP.SYRIN IV PRN (20:57)
[2017-02-22] MEDS ORDERED: METRONIDAZOLE 500MG/ NS 100ML 500 MG in PREMIX 1 EA IV ONE (21:00)
[2017-02-22] MEDS: ENOXAPARIN SODIUM 40 MG/0.4 ML DISP.SYRIN SQ SCH (21:05)
[2017-02-22] MEDS ORDERED: CLONIDINE HCL 0.1 MG TABLET PO PRN ×2 (21:30)
[2017-02-22] MEDS ORDERED: CLONIDINE HCL 0.1 MG TABLET ONE (21:42)
[2017-02-22] MEDS ORDERED: BLOOD SUGAR DIAGNOSTIC 1 EACH STRIP IN SCH (22:00)
[2017-02-22] MEDS: LEVOFLOXACIN 750 MG /D5W 150ML 750 MG in PREMIX 1 EA IV SCH (22:09)
[2017-02-23] MEDS ORDERED: PIPERACILLIN /TAZOBACTAM 3.375 G in IV D5W 50 ML IV SCH ×2
[2017-02-23] MEDS ORDERED: NITROGLYCERIN PACKET 1 GM PACKET ONE ×2 (00:41→05:36)
[2017-02-23] MEDS: HYDROMORPHONE INJ 2 MG/ML DISP.SYRIN IV PRN ×7 (00:48→23:28)
[2017-02-23] MEDS: BLOOD SUGAR DIAGNOSTIC 1 EACH STRIP IN SCH ×5 (00:57→23:27)
[2017-02-23] MEDS: NITROGLYCERIN PACKET 1 GM PACKET TOP SCH ×5 (00:58→23:34)
[2017-02-23] MEDS: IV NS 0.9% 1,000 ML IV PRN ×2 (01:02→19:41)
[2017-02-23] MEDS: INSULIN REGULAR, HUMAN 100 UNIT/ML 3 ML VIAL SQ PRN ×5 (01:05→23:40)
[2017-02-23] MEDS: METRONIDAZOLE 500MG/ NS 100ML 500 MG in PREMIX 1 EA IV SCH ×3 (04:27→21:03)
[2017-02-23 06:44] LABS: BASOPHILS % (AUTO) 0.3 % (0.0-2.0); EOSINOPHILS # (AUTO) 0.2 /CMM (0.0-0.7); EOSINOPHILS % (AUTO) 1.3 % (0.0-6.0); HEMATOCRIT 41 % (39-51); HEMOGLOBIN 13.6 g/dL (13.5-17.5); LYMPHOCYTES # (AUTO) 3.8 /CMM (0.8-4.8); LYMPHOCYTES % (AUTO) 28.1 % (20.0-44.0); MEAN CORPUSCULAR HEMOGLOBIN 30 PG (26.0-33.0); MEAN CORPUSCULAR HGB CONC 33 g/dl (31.0-36.0); MEAN CORPUSCULAR VOLUME 90 fL (80-96); MONOCYTES # (AUTO) 0.8 /CMM (0.1-1.30); MONOCYTES % (AUTO) 5.6 % (2.0-12.0); NEUTROPHILS # (AUTO) 8.8 /CMM (1.8-8.9); NEUTROPHILS % (AUTO) 64.7 % (43.0-81.0); PLATELET COUNT (AUTO) 218 /CMM (150-450); RDW COEFFICIENT OF VARIATION 12.8 (11.5-15.0); RED BLOOD CELL COUNT(AUTO) 4.56 MIL/uL (4.5-6.0); WHITE BLOOD COUNT (AUTO) 13.6 K/uL (4.3-11.0)
[2017-02-23 06:57] LABS: CALCIUM, SERUM 8.3 mg/dL (8.5-10.1); POTASSIUM 2.9 mmol/L (3.5-5.1)
[2017-02-23 08:00] VITALS: BP 142/84
[2017-02-23] MEDS: PANTOPRAZOLE 40 MG VIAL IV SCH (09:19)
[2017-02-23] MEDS ORDERED: CLONIDINE HCL 0.1 MG TABLET PO PRN (13:00)
[2017-02-23] MEDS ORDERED: ACETAMINOPHEN 325 MG TABLET PO PRN (13:00)
[2017-02-23] MEDS ORDERED: BLOOD SUGAR DIAGNOSTIC 1 EACH STRIP IN SCH (13:00)
[2017-02-23] MEDS ORDERED: MAGNESIUM HYDROXIDE 30 ML UDC PO PRN (13:00)
[2017-02-23] MEDS ORDERED: MAG HYDROX/AL HYDROX/SIMETH 30 ML UDC PO PRN (13:00)
[2017-02-23] MEDS: POTASSIUM CHLORIDE 20 MEQ TAB.PRT.SR PO SCH ×3 (13:09→13:48)
[2017-02-23] MEDS: FLUOXETINE HCL 20 MG CAPSULE PO SCH (13:09)
[2017-02-23] MEDS: AMLODIPINE BESYLATE 5 MG TABLET PO SCH ×2 (13:09→17:36)
[2017-02-23] MEDS: hydrALAZINE HCL 50 MG TABLET PO SCH ×2 (13:10→17:36)
[2017-02-23] MEDS: PREGABALIN 25 MG CAPSULE PO SCH ×2 (13:17→17:35)
[2017-02-23] MEDS: LOSARTAN POTASSIUM 50 MG TABLET PO SCH (13:18)
[2017-02-23 16:00] VITALS: BP 137/96
[2017-02-23 20:00] VITALS: BP 142/96
[2017-02-23] MEDS: ENOXAPARIN SODIUM 40 MG/0.4 ML DISP.SYRIN SQ SCH (21:22)
[2017-02-23] MEDS: QUETIAPINE FUMARATE 25 MG TABLET PO SCH (21:23)
[2017-02-23] MEDS: INSULIN DETEMIR 100 UNIT/ML CARTRIDGE SQ SCH (21:29)
[2017-02-23] MEDS ORDERED: ZOLPIDEM TARTRATE 10 MG TABLET PO PRN (22:00)
[2017-02-23] MEDS: LEVOFLOXACIN 750 MG /D5W 150ML 750 MG in PREMIX 1 EA IV SCH (22:23)
[2017-02-24] VITALS: BP 146/87
[2017-02-24] MEDS: METRONIDAZOLE 500MG/ NS 100ML 500 MG in PREMIX 1 EA IV SCH ×3 (04:17→22:04)
[2017-02-24] MEDS: BLOOD SUGAR DIAGNOSTIC 1 EACH STRIP IN SCH ×3 (05:45→16:51)
[2017-02-24] MEDS: NITROGLYCERIN PACKET 1 GM PACKET TOP SCH ×3 (05:45→16:38)
[2017-02-24] MEDS: HYDROMORPHONE INJ 2 MG/ML DISP.SYRIN IV PRN ×7 (05:47→23:58)
[2017-02-24] MEDS: INSULIN REGULAR, HUMAN 100 UNIT/ML 3 ML VIAL SQ PRN ×4 (05:59→21:18)
[2017-02-24 06:24] LABS: BASOPHILS # (AUTO) 0.1 /CMM (0.0-0.2); BASOPHILS % (AUTO) 0.5 % (0.0-2.0); EOSINOPHILS # (AUTO) 0.6 /CMM (0.0-0.7); EOSINOPHILS % (AUTO) 5.9 % (0.0-6.0); HEMATOCRIT 42 % (39-51); LYMPHOCYTES # (AUTO) 3.8 /CMM (0.8-4.8); LYMPHOCYTES % (AUTO) 40.8 % (20.0-44.0); MEAN CORPUSCULAR HEMOGLOBIN 30 PG (26.0-33.0); MEAN CORPUSCULAR HGB CONC 34 g/dl (31.0-36.0); MEAN CORPUSCULAR VOLUME 89 fL (80-96); MONOCYTES # (AUTO) 0.8 /CMM (0.1-1.30); MONOCYTES % (AUTO) 8.8 % (2.0-12.0); NEUTROPHILS # (AUTO) 4.1 /CMM (1.8-8.9); PLATELET COUNT (AUTO) 206 /CMM (150-450); RDW COEFFICIENT OF VARIATION 12.9 (11.5-15.0); RED BLOOD CELL COUNT(AUTO) 4.68 MIL/uL (4.5-6.0); WHITE BLOOD COUNT (AUTO) 9.4 K/uL (4.3-11.0)
[2017-02-24 06:46] LABS: CALCIUM, SERUM 8.1 mg/dL (8.5-10.1); MAGNESIUM 1.9 mg/dL (1.8-2.4); POTASSIUM 3.4 mmol/L (3.5-5.1)
[2017-02-24 08:00] VITALS: BP 130/92
[2017-02-24] MEDS: FLUOXETINE HCL 20 MG CAPSULE PO SCH (08:28)
[2017-02-24] MEDS: PREGABALIN 25 MG CAPSULE PO SCH ×2 (08:29→16:45)
[2017-02-24] MEDS: LOSARTAN POTASSIUM 50 MG TABLET PO SCH (08:29)
[2017-02-24] MEDS: AMLODIPINE BESYLATE 5 MG TABLET PO SCH ×2 (08:29→16:45)
[2017-02-24] MEDS: hydrALAZINE HCL 50 MG TABLET PO SCH ×3 (08:29→16:46)
[2017-02-24] MEDS: PANTOPRAZOLE 40 MG VIAL IV SCH (08:30)
[2017-02-24] MEDS: IV NS 0.9% 1,000 ML IV PRN (09:34)
[2017-02-24] MEDS: POTASSIUM CHLORIDE 20 MEQ TAB.PRT.SR PO SCH ×2 (11:25→12:33)
[2017-02-24 16:00] VITALS: BP 134/90
[2017-02-24 20:00] VITALS: BP 156/94
[2017-02-24] MEDS: LEVOFLOXACIN 750 MG /D5W 150ML 750 MG in PREMIX 1 EA IV SCH (20:34)
[2017-02-24] MEDS: QUETIAPINE FUMARATE 25 MG TABLET PO SCH (21:14)
[2017-02-24] MEDS: INSULIN DETEMIR 100 UNIT/ML CARTRIDGE SQ SCH (21:15)
[2017-02-24] MEDS: ENOXAPARIN SODIUM 40 MG/0.4 ML DISP.SYRIN SQ SCH (21:18)
[2017-02-25] MEDS: NITROGLYCERIN PACKET 1 GM PACKET TOP SCH ×5 (00:11→23:55)
[2017-02-25] MEDS: BLOOD SUGAR DIAGNOSTIC 1 EACH STRIP IN SCH ×4 (00:13→17:50)
[2017-02-25] MEDS: IV NS 0.9% 1,000 ML IV PRN (02:47)
[2017-02-25] MEDS: METRONIDAZOLE 500MG/ NS 100ML 500 MG in PREMIX 1 EA IV SCH (05:17)
[2017-02-25] MEDS: HYDROMORPHONE INJ 2 MG/ML DISP.SYRIN IV PRN ×5 (05:35→21:09)
[2017-02-25] MEDS: INSULIN REGULAR, HUMAN 100 UNIT/ML 3 ML VIAL SQ PRN ×3 (06:23→18:06)
[2017-02-25 08:00] VITALS: BP 148/98
[2017-02-25] MEDS: LOSARTAN POTASSIUM 50 MG TABLET PO SCH (09:43)
[2017-02-25] MEDS: AMLODIPINE BESYLATE 5 MG TABLET PO SCH ×2 (09:44→19:00)
[2017-02-25] MEDS: hydrALAZINE HCL 50 MG TABLET PO SCH ×3 (09:45→18:59)
[2017-02-25] MEDS: PREGABALIN 25 MG CAPSULE PO SCH ×2 (09:46→19:00)
[2017-02-25] MEDS: PANTOPRAZOLE 40 MG VIAL IV SCH (09:56)
[2017-02-25] MEDS: FLUOXETINE HCL 20 MG CAPSULE PO SCH (09:56)
[2017-02-25] MEDS: METRONIDAZOLE 500 MG TABLET PO SCH ×2 (14:25→21:11)
[2017-02-25 16:00] VITALS: BP 156/86
[2017-02-25 20:00] VITALS: BP 155/98
[2017-02-25 20:02] VITALS: BP 155/98
[2017-02-25] MEDS: QUETIAPINE FUMARATE 25 MG TABLET PO SCH (21:10)
[2017-02-25] MEDS: LEVOFLOXACIN (750 MG) 750 MG TABLET PO SCH (21:26)
[2017-02-25] MEDS: INSULIN DETEMIR 100 UNIT/ML CARTRIDGE SQ SCH (21:27)
[2017-02-25] MEDS: ENOXAPARIN SODIUM 40 MG/0.4 ML DISP.SYRIN SQ SCH (21:45)
[2017-02-26] MEDS: BLOOD SUGAR DIAGNOSTIC 1 EACH STRIP IN SCH ×6 (00:03→23:38)
[2017-02-26] MEDS: INSULIN REGULAR, HUMAN 100 UNIT/ML 3 ML VIAL SQ PRN ×3 (00:12→23:46)
[2017-02-26] MEDS: HYDROMORPHONE INJ 2 MG/ML DISP.SYRIN IV PRN ×8 (00:18→23:56)
[2017-02-26 00:28] VITALS: BP 108/68
[2017-02-26] MEDS: IV NS 0.9% 1,000 ML IV PRN (05:35)
[2017-02-26] MEDS: NITROGLYCERIN PACKET 1 GM PACKET TOP SCH ×4 (06:00→23:38)
[2017-02-26 06:30] LABS: BASOPHILS # (AUTO) 0.1 /CMM (0.0-0.2); BASOPHILS % (AUTO) 0.6 % (0.0-2.0); EOSINOPHILS # (AUTO) 0.6 /CMM (0.0-0.7); EOSINOPHILS % (AUTO) 7.9 % (0.0-6.0); HEMATOCRIT 44 % (39-51); HEMOGLOBIN 14.9 g/dL (13.5-17.5); LYMPHOCYTES # (AUTO) 3.7 /CMM (0.8-4.8); LYMPHOCYTES % (AUTO) 45.1 % (20.0-44.0); MEAN CORPUSCULAR HEMOGLOBIN 30 PG (26.0-33.0); MEAN CORPUSCULAR HGB CONC 34 g/dl (31.0-36.0); MEAN CORPUSCULAR VOLUME 89 fL (80-96); MONOCYTES # (AUTO) 0.7 /CMM (0.1-1.30); MONOCYTES % (AUTO) 8.5 % (2.0-12.0); NEUTROPHILS # (AUTO) 3.1 /CMM (1.8-8.9); NEUTROPHILS % (AUTO) 37.9 % (43.0-81.0); PLATELET COUNT (AUTO) 229 /CMM (150-450); RDW COEFFICIENT OF VARIATION 12.9 (11.5-15.0); RED BLOOD CELL COUNT(AUTO) 4.99 MIL/uL (4.5-6.0); WHITE BLOOD COUNT (AUTO) 8.1 K/uL (4.3-11.0)
[2017-02-26 07:05] LABS: CALCIUM, SERUM 8.7 mg/dL (8.5-10.1); CREATININE 0.9 mg/dL (0.6-1.3); PHOSPHORUS 3.4 mg/dL (2.5-4.9)
[2017-02-26 08:00] VITALS: BP 139/90
[2017-02-26] MEDS ORDERED: ANESTHESIA TRAY IN PYXIS 1 EA TRAY MC ONE (08:50)
[2017-02-26] MEDS: METRONIDAZOLE 500 MG TABLET PO SCH ×3 (09:00→21:24)
[2017-02-26] MEDS: hydrALAZINE HCL 50 MG TABLET PO SCH ×3 (09:00→16:32)
[2017-02-26] MEDS: PANTOPRAZOLE 40 MG VIAL IV SCH (12:02)
[2017-02-26] MEDS: PREGABALIN 25 MG CAPSULE PO SCH ×2 (12:03→16:31)
[2017-02-26] MEDS: FLUOXETINE HCL 20 MG CAPSULE PO SCH (12:03)
[2017-02-26] MEDS: AMLODIPINE BESYLATE 5 MG TABLET PO SCH ×2 (12:04→16:32)
[2017-02-26] MEDS: LOSARTAN POTASSIUM 50 MG TABLET PO SCH (12:04)
[2017-02-26] MEDS: POTASSIUM CL. PREMIX PERIPHER. 50 ML IV SCH ×3 (15:07→18:04)
[2017-02-26 15:56] VITALS: BP 131/96
[2017-02-26] MEDS: IV LR 1000 ML 1,000 ML IV PRN (18:25)
[2017-02-26 20:00] VITALS: BP 136/84
[2017-02-26 20:54] VITALS: BP 136/84
[2017-02-26] MEDS: METOCLOPRAMIDE HCL 10 MG TABLET PO SCH (21:24)
[2017-02-26] MEDS: QUETIAPINE FUMARATE 25 MG TABLET PO SCH (21:24)
[2017-02-26] MEDS: LEVOFLOXACIN (750 MG) 750 MG TABLET PO SCH (21:24)
[2017-02-26] MEDS: ENOXAPARIN SODIUM 40 MG/0.4 ML DISP.SYRIN SQ SCH (21:26)
[2017-02-26] MEDS: INSULIN DETEMIR 100 UNIT/ML CARTRIDGE SQ SCH (21:39)
[2017-02-27] MEDS: HYDROMORPHONE INJ 2 MG/ML DISP.SYRIN IV PRN ×10 (02:12→23:59)
[2017-02-27] MEDS: NITROGLYCERIN PACKET 1 GM PACKET TOP SCH ×3 (06:00→17:29)
[2017-02-27] MEDS: INSULIN REGULAR, HUMAN 100 UNIT/ML 3 ML VIAL SQ PRN ×2 (06:27→12:10)
[2017-02-27] MEDS: BLOOD SUGAR DIAGNOSTIC 1 EACH STRIP IN SCH ×3 (06:31→17:29)
[2017-02-27 06:46] LABS: CALCIUM, SERUM 8.6 mg/dL (8.5-10.1); POTASSIUM 3.3 mmol/L (3.5-5.1)
[2017-02-27 08:00] VITALS: BP 138/80
[2017-02-27] MEDS: METOCLOPRAMIDE HCL 10 MG TABLET PO SCH ×2 (08:21→23:00)
[2017-02-27] MEDS: hydrALAZINE HCL 50 MG TABLET PO SCH ×3 (08:22→16:43)
[2017-02-27] MEDS: AMLODIPINE BESYLATE 5 MG TABLET PO SCH ×2 (08:22→16:43)
[2017-02-27] MEDS: FLUOXETINE HCL 20 MG CAPSULE PO SCH (08:22)
[2017-02-27] MEDS: PANTOPRAZOLE 40 MG VIAL IV SCH (08:23)
[2017-02-27] MEDS: METRONIDAZOLE 500 MG TABLET PO SCH ×3 (08:30→23:00)
[2017-02-27] MEDS: PREGABALIN 25 MG CAPSULE PO SCH ×2 (08:30→16:43)
[2017-02-27] MEDS: LOSARTAN POTASSIUM 50 MG TABLET PO SCH (08:31)
[2017-02-27] MEDS: BISACODYL (5 MG) 5 MG TABLET.DR PO SCH (10:14)
[2017-02-27] MEDS ORDERED: POTASSIUM CHLORIDE 20 MEQ TAB.PRT.SR PO SCH (11:30)
[2017-02-27] MEDS ORDERED: PEG 3350/NA SULF,BICARB,CL/KCL 4,000 ML BOTTLE PO ONE (13:00)
[2017-02-27 16:00] VITALS: BP 111/80
[2017-02-27] MEDS: IV LR 1000 ML 1,000 ML IV PRN (16:42)
[2017-02-27 20:00] VITALS: BP 148/99
[2017-02-27] MEDS: ENOXAPARIN SODIUM 40 MG/0.4 ML DISP.SYRIN SQ SCH (21:00)
[2017-02-27] MEDS: INSULIN DETEMIR 100 UNIT/ML CARTRIDGE SQ SCH (22:00)
[2017-02-27] MEDS: QUETIAPINE FUMARATE 25 MG TABLET PO SCH (23:00)
[2017-02-27] MEDS: LEVOFLOXACIN (750 MG) 750 MG TABLET PO SCH (23:00)
[2017-02-28] VITALS (9 sets, daily range): BP systolic 93–151; BP diastolic 55–103
[2017-02-28] MEDS: BLOOD SUGAR DIAGNOSTIC 1 EACH STRIP IN SCH ×5 (00:01→23:01)
[2017-02-28] MEDS: HYDROMORPHONE INJ 2 MG/ML DISP.SYRIN IV PRN ×7 (03:21→21:25)
[2017-02-28] MEDS: NITROGLYCERIN PACKET 1 GM PACKET TOP SCH ×5 (06:00→23:07)
[2017-02-28 06:39] LABS: CALCIUM, SERUM 8.8 mg/dL (8.5-10.1); CREATININE 0.9 mg/dL (0.6-1.3); POTASSIUM 3.3 mmol/L (3.5-5.1)
[2017-02-28] MEDS: PREGABALIN 25 MG CAPSULE PO SCH ×2 (08:27→17:34)
[2017-02-28] MEDS: METOCLOPRAMIDE HCL 10 MG TABLET PO SCH ×2 (08:27→21:19)
[2017-02-28] MEDS: METRONIDAZOLE 500 MG TABLET PO SCH ×3 (08:28→21:19)
[2017-02-28] MEDS: FLUOXETINE HCL 20 MG CAPSULE PO SCH (08:28)
[2017-02-28] MEDS: hydrALAZINE HCL 50 MG TABLET PO SCH ×3 (08:28→16:26)
[2017-02-28] MEDS: PANTOPRAZOLE 40 MG VIAL IV SCH (08:28)
[2017-02-28] MEDS: LOSARTAN POTASSIUM 50 MG TABLET PO SCH (08:28)
[2017-02-28] MEDS: AMLODIPINE BESYLATE 5 MG TABLET PO SCH ×2 (08:29→16:27)
[2017-02-28] MEDS: BISACODYL (5 MG) 5 MG TABLET.DR PO SCH (09:10)
[2017-02-28] MEDS ORDERED: FENTANYL PF 100MCG/2ML AMPUL ONE (09:48)
[2017-02-28] MEDS ORDERED: MIDAZOLAM HCL 2 MG/2ML VIAL ONE (09:48)
[2017-02-28] MEDS ORDERED: BUPIVACAINE 0.5 % PF 150 MG/30 ML VIAL ONE (10:20)
[2017-02-28] MEDS ORDERED: LIDOCAINE 0.5% HCL 50 ML VIAL ONE (10:20)
[2017-02-28] MEDS ORDERED: SEVOFLURANE 250 ML BOTTLE IH ONE (10:30)
[2017-02-28] MEDS ORDERED: DESFLURANE 240 ML BOTTLE IH ONE (10:31)
[2017-02-28] MEDS ORDERED: VASOPRESSIN INJ 20 UNIT/ML VIAL ONE (10:45)
[2017-02-28] MEDS ORDERED: ALBUMIN 25% 50 ML IV ONE (10:46)
[2017-02-28] MEDS ORDERED: ALBUMIN 5% 250 ML IV ONE (11:20)
[2017-02-28] MEDS ORDERED: HYDROMORPHONE 2 MG/1 ML SDV ONE (11:51)
[2017-02-28] MEDS ORDERED: POTASSIUM CHLORIDE 20 MEQ TAB.PRT.SR PO SCH (12:00)
[2017-02-28] MEDS ORDERED: IV LR 1000 ML 1,000 ML IV PRN (13:00)
[2017-02-28] MEDS ORDERED: GABAPENTIN 300 MG CAPSULE PO ONE (14:00)
[2017-02-28] MEDS ORDERED: ACETAMINOPHEN 325 MG TABLET PO ONE (14:00)
[2017-02-28] MEDS ORDERED: IBUPROFEN 400 MG TABLET PO ONE (14:00)
[2017-02-28] MEDS ORDERED: ACETAMINOPHEN 325 MG TABLET PO PRN (15:00)
[2017-02-28] MEDS: INSULIN REGULAR, HUMAN 100 UNIT/ML 3 ML VIAL SQ PRN ×2 (17:35→23:03)
[2017-02-28] MEDS ORDERED: ACETAMINOPHEN 325 MG TABLET PO SCH (21:00)
[2017-02-28] MEDS: GABAPENTIN 300 MG CAPSULE PO SCH (21:19)
[2017-02-28] MEDS: IBUPROFEN 400 MG TABLET PO SCH (21:19)
[2017-02-28] MEDS: QUETIAPINE FUMARATE 25 MG TABLET PO SCH (21:20)
[2017-02-28] MEDS: ENOXAPARIN SODIUM 40 MG/0.4 ML DISP.SYRIN SQ SCH (21:36)
[2017-02-28] MEDS: LEVOFLOXACIN (750 MG) 750 MG TABLET PO SCH (21:38)
[2017-02-28] MEDS: INSULIN DETEMIR 100 UNIT/ML CARTRIDGE SQ SCH (23:01)
[2017-03-01] MEDS: HYDROMORPHONE INJ 2 MG/ML DISP.SYRIN IV PRN ×7 (01:50→20:07)
[2017-03-01] MEDS: GABAPENTIN 300 MG CAPSULE PO SCH ×3 (04:49→21:49)
[2017-03-01] MEDS: IBUPROFEN 400 MG TABLET PO SCH ×3 (04:49→21:49)
[2017-03-01] MEDS: NITROGLYCERIN PACKET 1 GM PACKET TOP SCH ×3 (06:00→17:06)
[2017-03-01] MEDS: BLOOD SUGAR DIAGNOSTIC 1 EACH STRIP IN SCH ×4 (06:22→21:50)
[2017-03-01] MEDS: INSULIN REGULAR, HUMAN 100 UNIT/ML 3 ML VIAL SQ PRN ×4 (06:29→21:51)
[2017-03-01 06:49] LABS: CALCIUM, SERUM 8.7 mg/dL (8.5-10.1); POTASSIUM 3.4 mmol/L (3.5-5.1)
[2017-03-01 08:00] VITALS: BP 116/66
[2017-03-01] MEDS: METOCLOPRAMIDE HCL 10 MG TABLET PO SCH (08:17)
[2017-03-01] MEDS: METRONIDAZOLE 500 MG TABLET PO SCH ×3 (08:21→21:49)
[2017-03-01] MEDS: FLUOXETINE HCL 20 MG CAPSULE PO SCH (08:21)
[2017-03-01] MEDS: AMLODIPINE BESYLATE 5 MG TABLET PO SCH ×2 (08:22→16:50)
[2017-03-01] MEDS: hydrALAZINE HCL 50 MG TABLET PO SCH ×3 (08:22→16:53)
[2017-03-01] MEDS: LOSARTAN POTASSIUM 50 MG TABLET PO SCH (08:22)
[2017-03-01] MEDS: PANTOPRAZOLE 40 MG VIAL IV SCH (08:23)
[2017-03-01] MEDS: PREGABALIN 25 MG CAPSULE PO SCH ×2 (08:33→16:50)
[2017-03-01] MEDS: BISACODYL (5 MG) 5 MG TABLET.DR PO SCH (10:25)
[2017-03-01] MEDS ORDERED: POTASSIUM CHLORIDE 20 MEQ TAB.PRT.SR PO SCH (11:30)
[2017-03-01 16:00] VITALS: BP 129/79
[2017-03-01] MEDS ORDERED: QUETIAPINE FUMARATE 25 MG TABLET PO SCH ×2 (16:00→22:00)
[2017-03-01 18:00] VITALS: BP 129/79
[2017-03-01 19:53] VITALS: BP 149/98
[2017-03-01 20:00] VITALS: BP 149/98
[2017-03-01] MEDS: INSULIN DETEMIR 100 UNIT/ML CARTRIDGE SQ SCH (21:50)
[2017-03-02] MEDS: NITROGLYCERIN PACKET 1 GM PACKET TOP SCH ×3 (01:20→12:00)
[2017-03-02] MEDS: HYDROMORPHONE INJ 2 MG/ML DISP.SYRIN IV PRN ×5 (01:49→17:01)
[2017-03-02] MEDS: GABAPENTIN 300 MG CAPSULE PO SCH ×2 (05:59→12:28)
[2017-03-02] MEDS: IBUPROFEN 400 MG TABLET PO SCH ×2 (06:00→12:28)
[2017-03-02] MEDS: BLOOD SUGAR DIAGNOSTIC 1 EACH STRIP IN SCH ×2 (06:45→12:29)
[2017-03-02] MEDS: INSULIN REGULAR, HUMAN 100 UNIT/ML 3 ML VIAL SQ PRN ×2 (06:55→12:31)
[2017-03-02 08:00] VITALS: BP 139/87
[2017-03-02 08:04] LABS: CALCIUM, SERUM 8.7 mg/dL (8.5-10.1)
[2017-03-02 08:10] LABS: POTASSIUM 2.7 mmol/L (3.5-5.1)
[2017-03-02] MEDS: AMLODIPINE BESYLATE 5 MG TABLET PO SCH ×2 (08:37→17:00)
[2017-03-02] MEDS: METRONIDAZOLE 500 MG TABLET PO SCH ×2 (08:37→12:28)
[2017-03-02] MEDS: PANTOPRAZOLE 40 MG VIAL IV SCH (08:37)
[2017-03-02] MEDS: PREGABALIN 25 MG CAPSULE PO SCH ×2 (08:38→17:00)
[2017-03-02] MEDS: hydrALAZINE HCL 50 MG TABLET PO SCH ×3 (08:38→17:00)
[2017-03-02] MEDS: LOSARTAN POTASSIUM 50 MG TABLET PO SCH (08:38)
[2017-03-02] MEDS ORDERED: FLUOXETINE HCL 20 MG CAPSULE PO SCH (09:00)
[2017-03-02] MEDS ORDERED: POTASSIUM CHLORIDE 20 MEQ TAB.PRT.SR PO ONE ×2 (10:30→13:00)
[2017-03-02] MEDS: BISACODYL (5 MG) 5 MG TABLET.DR PO SCH (11:04)
[2017-03-02] MEDS ORDERED: MORPHINE SULFATE SR 15 MG TABLET.SA PO SCH (14:30)
[2017-03-02 16:00] VITALS: BP 134/80
[2017-03-02 17:00] VITALS: BP 134/80
== END 2017-03-02 18:04 | DRG 335 ==
LOC: ER 13:53 → MED 18:25 → MEDSG2 02-27 20:56
PROVIDERS: ADMIT Legal Medicine; ATTEND Legal Medicine
PROC: 0DD58ZX Extraction of Esophagus, Via Natural or Artificial Opening Endoscopic, Diagnostic (ICD-10-PCS; 2017-02-26)
PROC: 0DD68ZX Extraction of Stomach, Via Natural or Artificial Opening Endoscopic, Diagnostic (ICD-10-PCS; 2017-02-26)
PROC: 0DN84ZZ Release Small Intestine, Percutaneous Endoscopic Approach (ICD-10-PCS; principal; 2017-02-28 10:16)
DX: K66.0 Peritoneal adhesions (postprocedural) (postinfection) (principal); N17.0 Acute kidney failure with tubular necrosis; E87.2 Acidosis; T18.2XXA Foreign body in stomach, initial encounter; E11.65 Type 2 diabetes mellitus with hyperglycemia; K29.70 Gastritis, unspecified, without bleeding; I10 Essential (primary) hypertension; Z98.890 Other specified postprocedural states; Z79.4 Long term (current) use of insulin; Z90.49 Acquired absence of other specified parts of digestive tract; Z79.899 Other long term (current) drug therapy; Z88.0 Allergy status to penicillin; G89.4 Chronic pain syndrome; F29 Unspecified psychosis not due to a substance or known physiological condition; F32.9 Major depressive disorder, single episode, unspecified; K20.9 Esophagitis, unspecified; X58.XXXA Exposure to other specified factors, initial encounter; Y92.129 Unspecified place in nursing home as the place of occurrence of the external cause; F41.9 Anxiety disorder, unspecified
CPT/HCPCS: 36415; 36600; 71010-TC; 76870-TC; 80048-TC; 80076-TC; 81000-TC; 82962-TC; 83605-TC; 83690-TC; 83735-TC; 84100-TC; 85025-TC; 87040-TC; 87081-TC; 88305-TC; 88313-TC; 88342; A4216; A4606; A6209; C9113; J0690; J0744; J1100; J1170; J1650; J1815; J1885; J1956; J2250; J2405; J2543; J2704; J3010; J3480; J3490; J7030; J7050; J7060; J7120; J8597; P9045; P9047; Q9967; Z7610

== ENCOUNTER 2017-03-05 20:14 | Emergency (ER) | payer MEDICARE ==
[~2017-03-05] VITALS: Ht 172.7 cm; Wt 99.8 kg
[~2017-03-05 20:14] MED LIST changes: -ALLA266C2 TP; -BACI1PAC2 TP; -BUPR-51 PO; -CLOT15CR63 TP; -DULO30CA2 PO; -ENOX40DI SQ; -FLUO-120 PO; +FLUO20CA36 PO; -HYDR-548 PO; -HYDR-552 PO; -MORP15TA PO; -NALO25TA PO; -NITROGLYCERIN PACKET 1 GM PACKET TOP SCH; +TEST200V3 IM
--- NOTE | 2017-03-05 21:10 | NUR ---
PT A/OX4 BREATHING EFFORTLESSLY ON ROOM AIR, PT STATES HE HAD A WITNESSED GLF, PT C/O RIGHT KNEE PAIN AND ABD PAIN S/P GLF, PT DENIES KO, PT STATES HE JUST HAD ABD SURGERY 1 WEEK AGO
[2017-03-05] MEDS ORDERED: KETOROLAC TROMETHAMINE 15 MG/ML VIAL ONE (21:23)
[2017-03-05] MEDS ORDERED: IV NS 0.9% 1,000 ML BAG IV ONE (21:30)
[2017-03-05] MEDS ORDERED: KETOROLAC TROMETHAMINE INJ 30 MG/ML VIAL IV ONE (21:30)
[2017-03-05 21:33] LABS: BASOPHILS # (AUTO) 0.1 /CMM (0.0-0.2); BASOPHILS % (AUTO) 0.9 % (0.0-2.0); EOSINOPHILS # (AUTO) 0.9 /CMM (0.0-0.7); EOSINOPHILS % (AUTO) 6.9 % (0.0-6.0); HEMATOCRIT 40 % (39-51); HEMOGLOBIN 13.8 g/dL (13.5-17.5); LYMPHOCYTES # (AUTO) 4.1 /CMM (0.8-4.8); LYMPHOCYTES % (AUTO) 32.6 % (20.0-44.0); MEAN CORPUSCULAR HEMOGLOBIN 30 PG (26.0-33.0); MEAN CORPUSCULAR HGB CONC 34 g/dl (31.0-36.0); MEAN CORPUSCULAR VOLUME 88 fL (80-96); MONOCYTES # (AUTO) 0.7 /CMM (0.1-1.30); MONOCYTES % (AUTO) 5.5 % (2.0-12.0); NEUTROPHILS # (AUTO) 6.7 /CMM (1.8-8.9); NEUTROPHILS % (AUTO) 54.1 % (43.0-81.0); PLATELET COUNT (AUTO) 238 /CMM (150-450); RDW COEFFICIENT OF VARIATION 11.6 (11.5-15.0); RED BLOOD CELL COUNT(AUTO) 4.58 MIL/uL (4.5-6.0); WHITE BLOOD COUNT (AUTO) 12.5 K/uL (4.3-11.0)
--- NOTE | 2017-03-05 21:35 | NUR ---
URINE COLLECTED AND SENT TO LAB
[2017-03-05 21:44] LABS: ALBUMIN 3.5 g/dL (3.4-5.0); BILIRUBIN,DIRECT 0.1 mg/dL (0.0-0.2); BILIRUBIN,TOTAL 0.4 mg/dL (0.2-1.0); CALCIUM, SERUM 8.8 mg/dL (8.5-10.1); CREATININE 0.9 mg/dL (0.6-1.3); POTASSIUM 3.5 mmol/L (3.5-5.1); TOTAL PROTEIN, SERUM 6.6 g/dL (6.4-8.2)
[2017-03-05 22:10] LABS: APPEARANCE,URINE CLEAR (CLEAR); BILIRUBIN,URINE NEGATIVE (NEGATIVE); BLOOD, URINE NEGATIVE Ery/uL (NEGATIVE); COLOR,URINE YELLOW (YELLOW); KETONES,URINE NEGATIVE (NEGATIVE); LEUKOCYTE ESTERASE ,URINE NEGATIVE (NEGATIVE); NITRITE, URINE NEGATIVE (NEGATIVE); PROTEIN,URINE NEGATIVE (NEGATIVE); UGLUCOSE TRACE mg/dL (NEGATIVE); UROBILINOGEN,URINE 0.2 EU/dL (0.2)
--- NOTE | 2017-03-05 22:30 | NUR ---
PT RELAXING IN BED, ON MONITOR, VSS, PT STATES HE IS STILL IN PAIN, GEOFF ZHU MADE AWARE WILL CONTINUE TO MONITOR.
[2017-03-05 22:37] LABS: BACTERIA,URINE None seen /HPF (None Seen); RBC,URINE NONE SEEN /HPF (0-2); SQUAMOUS EPITHELIAL CELL,UR Few /HPF (None Seen); WBC,URINE 0-2 /HPF (0-3)
--- NOTE | 2017-03-05 22:48 | NUR ---
CALLED [facility] FOR TRANSPORT ETA OF 45MINS WAS GIVEN.
--- NOTE | 2017-03-05 23:21 | NUR ---
pt [facility]
[2017-03-05 23:23] VITALS: BP 124/74
--- NOTE | 2017-03-05 23:24 | NUR ---
Patient discharged to home in stable condition. Written and verbal after care instructions given. Patient verbalizes understanding of instruction.IV removed. Catheter intact and site benign. Pressure and 4x4 applied to site. No bleeding noted.
== END 2017-03-05 23:24 | disposition home or self-care (01) ==
LOC: ER 20:16
DX: S39.012A Strain of muscle, fascia and tendon of lower back, initial encounter (principal); M25.561 Pain in right knee; E11.9 Type 2 diabetes mellitus without complications; I10 Essential (primary) hypertension; G89.29 Other chronic pain; Z98.890 Other specified postprocedural states; Z79.4 Long term (current) use of insulin; Z88.0 Allergy status to penicillin; Z88.2 Allergy status to sulfonamides; Z88.6 Allergy status to analgesic agent; Z90.89 Acquired absence of other organs; W18.39XA Other fall on same level, initial encounter; Y93.01 Activity, walking, marching and hiking; Y92.89 Other specified places as the place of occurrence of the external cause; Y99.8 Other external cause status
CPT/HCPCS: 36415; 73564; 80048; 80076; 81001; 83690; 85025; 96361; 96374; 99285; A4606; J1885; J7030; 81000-TC; Z7610

== ENCOUNTER 2017-05-08 22:37 | Emergency (ER) | payer MEDICARE ==
[~2017-05-08] VITALS: Ht 175.3 cm; Wt 95.3 kg
[2017-05-08] MEDS ORDERED: INSULIN REGULAR, HUMAN 100 UNIT/ML 3 ML VIAL IV ONE (23:00)
--- NOTE | 2017-05-08 23:13 | NUR ---
PT TRANSPORTED TO RADIOLOGY FOR CT
[2017-05-08 23:25] LABS: BASOPHILS % (AUTO) 0.2 % (0.0-2.0); EOSINOPHILS # (AUTO) 0.1 /CMM (0.0-0.7); EOSINOPHILS % (AUTO) 0.9 % (0.0-6.0); HEMATOCRIT 41 % (39-51); HEMOGLOBIN 13.6 g/dL (13.5-17.5); LYMPHOCYTES # (AUTO) 2.3 /CMM (0.8-4.8); LYMPHOCYTES % (AUTO) 25.4 % (20.0-44.0); MEAN CORPUSCULAR HEMOGLOBIN 30 PG (26.0-33.0); MEAN CORPUSCULAR HGB CONC 34 g/dl (31.0-36.0); MEAN CORPUSCULAR VOLUME 89 fL (80-96); MONOCYTES # (AUTO) 0.5 /CMM (0.1-1.30); MONOCYTES % (AUTO) 5.3 % (2.0-12.0); NEUTROPHILS % (AUTO) 68.2 % (43.0-81.0); PLATELET COUNT (AUTO) 203 /CMM (150-450); RDW COEFFICIENT OF VARIATION 12.5 (11.5-15.0); RED BLOOD CELL COUNT(AUTO) 4.57 MIL/uL (4.5-6.0); WHITE BLOOD COUNT (AUTO) 8.9 K/uL (4.3-11.0)
[2017-05-08] MEDS ORDERED: MORPHINE SULFATE INJ 2 MG/ML DISP.SYRIN IV ONE (23:30)
[2017-05-08] MEDS ORDERED: ONDANSETRON HCL/PF 4 MG/2 ML VIAL IV ONE (23:30)
--- NOTE | 2017-05-08 23:39 | NUR ---
10 UNITS OF INSULIN VERIFIED WITH TILE MECHANIC ED
[2017-05-08 23:40] LABS: INR 0.87 (0.87-1.13)
[2017-05-08 23:45] LABS: TROPONIN I < 0.017 ng/mL (0.00-0.056)
[2017-05-08 23:51] LABS: ALANINE AMINOTRANSFERASE 26 U/L (12-78); ALBUMIN 3.4 g/dL (3.4-5.0); ALKALINE PHOSPHATASE 127 U/L (46-116); ASPARTATE AMINOTRANSFERASE 9 U/L (15-37); B-TYPE NATRIURETIC PEPTIDE 56 PG/ML (0-125); BILIRUBIN,DIRECT 0.1 mg/dL (0.0-0.2); BILIRUBIN,TOTAL 0.3 mg/dL (0.2-1.0); CALCIUM, SERUM 8.1 mg/dL (8.5-10.1); CARBON DIOXIDE 25 mmol/L (21-32); CHLORIDE 94 mmol/L (98-107); CREATININE 1.3 mg/dL (0.6-1.3); POTASSIUM 3.5 mmol/L (3.5-5.1); SODIUM SERUM 130 mmol/L (136-145); TOTAL PROTEIN, SERUM 6.9 g/dL (6.4-8.2); UREA NITROGEN, BLOOD 16 mg/dL (7-18)
[2017-05-08 23:53] LABS: GLUCOSE 607 mg/dL (74-106)
[2017-05-09] MEDS ORDERED: IV NS 0.9% 1,000 ML BAG IV ONE
--- NOTE | 2017-05-09 00:08 | NUR ---
PT AMBULATORY TO THE BATHROOM WITH STEADY GAIT NOTED.
--- NOTE | 2017-05-09 00:36 | NUR ---
EMETERIO AMADOR AT BEDSIDE.
[2017-05-09 00:55] LABS: APPEARANCE,URINE CLEAR (CLEAR); BILIRUBIN,URINE NEGATIVE (NEGATIVE); BLOOD, URINE NEGATIVE Ery/uL (NEGATIVE); COLOR,URINE YELLOW (YELLOW); KETONES,URINE NEGATIVE (NEGATIVE); LEUKOCYTE ESTERASE ,URINE NEGATIVE (NEGATIVE); NITRITE, URINE NEGATIVE (NEGATIVE); PROTEIN,URINE NEGATIVE (NEGATIVE); UGLUCOSE 3+ mg/dL (NEGATIVE); UROBILINOGEN,URINE 0.2 EU/dL (0.2)
--- NOTE | 2017-05-09 01:00 | NUR ---
IV removed. Catheter intact and site benign. Pressure and 4x4 applied to site. No bleeding noted. ambulatory with a steady gait. Patient discharged to home in stable condition. Written and verbal after care instructions given. Patient verbalizes understanding of instruction. pt aaox4 no acute distress noted, resp even and unlabored. advice pt not to drive or operate nay machinery due to pt was given narcotic medicine. pt verbalize understanding.
[2017-05-09 01:01] LABS: BACTERIA,URINE Rare /HPF (None Seen); RBC,URINE 0-2 /HPF (0-2); SQUAMOUS EPITHELIAL CELL,UR None Seen /HPF (None Seen); WBC,URINE 0-2 /HPF (0-3); YEAST,URINE Rare /HPF (None Seen)
[2017-05-09 01:03] VITALS: BP 132/69
[2017-05-10] MEDS ORDERED: OXYC-128 PO (14:46)
== END 2017-05-09 01:03 | disposition home or self-care (01) ==
LOC: ER 22:41
DX: E11.65 Type 2 diabetes mellitus with hyperglycemia (principal); G89.29 Other chronic pain; I10 Essential (primary) hypertension; K52.9 Noninfective gastroenteritis and colitis, unspecified; K46.9 Unspecified abdominal hernia without obstruction or gangrene; N28.1 Cyst of kidney, acquired; Z79.4 Long term (current) use of insulin; Z88.0 Allergy status to penicillin; Z88.2 Allergy status to sulfonamides; Z98.890 Other specified postprocedural states; Z88.6 Allergy status to analgesic agent; Z88.1 Allergy status to other antibiotic agents
CPT/HCPCS: 36415; 71045-TC; 76870-TC; 80048-TC; 80076-TC; 81000-TC; 82010-TC; 82962-TC; 83880; 84484-TC; 85025-TC; 85730-TC; A4606; J1815; Z7610

== ENCOUNTER 2017-05-10 09:51 | Inpatient (IN) | payer MEDICARE ==
[2017-05-10] VITALS (7 sets, daily range): BP systolic 108–123; BP diastolic 63–80
[~2017-05-10 09:51] MED LIST changes: +INSULIN REGULAR, HUMAN 100 UNIT/ML 10 ML VIAL ONE; +MORPHINE SULFATE INJ 4 MG/ML DISP.SYRIN ONE; +ONDANSETRON HCL/PF 4 MG/2 ML VIAL ONE
--- NOTE | 2017-05-10 10:30 | NUR ---
ms rn received a new admission , for left inguinal hernia repair w/ dr. berry, awake,alert,oriented x4,not in any form of distress, respirations even and unlabored, no sob noted.lungs are clear,abdomen soft,positive bowel sounds, denies pain at this time, all needs attended.
[2017-05-10] MEDS ORDERED: ROCURONIUM BROMIDE 50 MG/5 ML ONE (11:33)
[2017-05-10] MEDS ORDERED: MIDAZOLAM HCL 2 MG/2ML VIAL ONE (11:33)
[2017-05-10] MEDS ORDERED: FENTANYL PF 100MCG/2ML AMPUL ONE ×3 (11:33→13:19)
[2017-05-10] MEDS ORDERED: CLINDAMYCIN 900 MG/6 ML VIAL ONE (11:42)
--- NOTE | 2017-05-10 12:05 | NUR ---
ms rn went down for surgery.
[2017-05-10] MEDS ORDERED: BUPIVACAINE 0.5 % PF 150 MG/30 ML VIAL ONE (12:28)
[2017-05-10] MEDS ORDERED: LIDOCAINE 2%-EPI 1:200,000 20 ML VIAL IJ ONE (12:29)
[2017-05-10] MEDS ORDERED: EPINEPHRINE (1:1000) 1 MG/ML AMPUL ONE (12:33)
[2017-05-10] MEDS ORDERED: LIDOCAINE 1% INJ 50 ML MDV IJ ONE (12:35)
[2017-05-10] MEDS ORDERED: ONDANSETRON HCL/PF 4 MG/2 ML VIAL ONE (13:08)
[2017-05-10] MEDS ORDERED: HYDROMORPHONE 1 MG/1 ML DISP.SYRIN ONE (13:36)
--- NOTE | 2017-05-10 14:20 | NUR ---
ms rn patient came back from procedure, awake,alert, oriented x3,not in any form of distress, incision site covered w/ dry dressing,no s/s of bleeding at this time.all needs attended, patient will be discharge today if stable.
[2017-05-10] MEDS ORDERED: OXYC-128 PO (14:46)
[2017-05-10] MEDS ORDERED: GABAPENTIN 300 MG CAPSULE PO ONE (15:00)
[2017-05-10] MEDS ORDERED: IBUPROFEN 800 MG TABLET PO ONE (15:00)
[2017-05-10] MEDS ORDERED: IBUPROFEN 400 MG TABLET PO ONE (16:00)
--- NOTE | 2017-05-10 16:19 | NUR ---
MS RN PATIENT READY FOR DISCHARGE, WAITING FOR FAMILY TO PICK HIM UP.
--- NOTE | 2017-05-10 16:30 | NUR ---
ms hydraulic governor assembler came, patient discharge w/ instructions given, to have a follow up w/ dr. berry in one week.
== END 2017-05-10 16:50 | disposition home or self-care (01) | DRG 352 ==
LOC: DS 09:51 → MED 09:54
PROVIDERS: ADMIT Surgery; ATTEND Surgery
PROC: 0YU60JZ Supplement Left Inguinal Region with Synthetic Substitute, Open Approach (ICD-10-PCS; principal; 2017-05-10 12:01)
DX: K40.90 Unilateral inguinal hernia, without obstruction or gangrene, not specified as recurrent (principal); Z86.59 Personal history of other mental and behavioral disorders; Z98.1 Arthrodesis status; Z98.890 Other specified postprocedural states
CPT/HCPCS: 71045-TC; 82962-TC; A6402; C1781; J0171; J1170; J1815; J1885; J2250; J2270; J2405; J2704; J2710; J3010; J3490; Z7610

== ENCOUNTER 2017-05-17 14:54 | Emergency (ER) | payer MEDICARE ==
[~2017-05-17] VITALS: Ht 167.6 cm; Wt 74.8 kg
[~2017-05-17 14:54] MED LIST changes: -INSULIN REGULAR, HUMAN 100 UNIT/ML 10 ML VIAL ONE; -MORPHINE SULFATE INJ 4 MG/ML DISP.SYRIN ONE; -ONDANSETRON HCL/PF 4 MG/2 ML VIAL ONE; +OXYC-128 PO
--- NOTE | 2017-05-17 15:22 | NUR ---
PT TO ED ROOM 03. L TESTICULAR PAIN AND SWELLING X 4 DAYS. A/A/O. SIDE RAILS UP. HOB ELEVATED. CONNECTE DTO MONITOR. EAWAITING EVALUATION BY ER PROVIDER.
[2017-05-17] MEDS ORDERED: HYDROMORPHONE INJ 2 MG/ML DISP.SYRIN IV ONE ×2 (15:30→18:30)
[2017-05-17] MEDS ORDERED: ONDANSETRON HCL/PF 4 MG/2 ML VIAL IVP ONE (15:30)
[2017-05-17] MEDS ORDERED: IV NS 0.9% 1,000 ML BAG IV ONE (15:30)
[2017-05-17] MEDS ORDERED: HYDROMORPHONE 1 MG/1 ML DISP.SYRIN ONE (15:37)
[2017-05-17] MEDS ORDERED: ONDANSETRON HCL/PF 4 MG/2 ML VIAL ONE (15:37)
[2017-05-17 15:42] LABS: BASOPHILS # (AUTO) 0.1 /CMM (0.0-0.2); EOSINOPHILS # (AUTO) 0.3 /CMM (0.0-0.7); EOSINOPHILS % (AUTO) 3.4 % (0.0-6.0); HEMATOCRIT 46 % (39-51); HEMOGLOBIN 15.8 g/dL (13.5-17.5); LYMPHOCYTES # (AUTO) 2.5 /CMM (0.8-4.8); LYMPHOCYTES % (AUTO) 24.5 % (20.0-44.0); MEAN CORPUSCULAR HEMOGLOBIN 30 PG (26.0-33.0); MEAN CORPUSCULAR HGB CONC 35 g/dl (31.0-36.0); MEAN CORPUSCULAR VOLUME 87 fL (80-96); MONOCYTES # (AUTO) 0.5 /CMM (0.1-1.30); MONOCYTES % (AUTO) 4.8 % (2.0-12.0); NEUTROPHILS # (AUTO) 6.7 /CMM (1.8-8.9); NEUTROPHILS % (AUTO) 66.3 % (43.0-81.0); PLATELET COUNT (AUTO) 269 /CMM (150-450); RDW COEFFICIENT OF VARIATION 11.7 (11.5-15.0); RED BLOOD CELL COUNT(AUTO) 5.25 MIL/uL (4.5-6.0); WHITE BLOOD COUNT (AUTO) 10.1 K/uL (4.3-11.0)
[2017-05-17 15:49] LABS: CALCIUM, SERUM 9.4 mg/dL (8.5-10.1); CREATININE 1.2 mg/dL (0.6-1.3); POTASSIUM 3.3 mmol/L (3.5-5.1)
[2017-05-17 15:55] LABS: ALBUMIN 3.8 g/dL (3.4-5.0); BILIRUBIN,DIRECT 0.1 mg/dL (0.0-0.2); BILIRUBIN,TOTAL 0.4 mg/dL (0.2-1.0)
--- NOTE | 2017-05-17 17:06 | NUR ---
PT IS STILL UNABLE TO PROVIDE URINE SAMPLE, WILL TRY AGAIN SOON.
--- NOTE | 2017-05-17 18:09 | NUR ---
URINE SAMPLE COLLECTED VIA IN/OUT STRAIGHT HAY, SAMPLE SEND TO LAB
[2017-05-17] MEDS ORDERED: METOCLOPRAMIDE HCL 10 MG/2 ML VIAL ONE (18:13)
[2017-05-17] MEDS ORDERED: HYDROMORPHONE INJ 0.5 MG/0.5 ML SYRINGE ONE (18:13)
[2017-05-17 18:19] LABS: APPEARANCE,URINE Clear (CLEAR); BILIRUBIN,URINE SMALL (NEGATIVE); BLOOD, URINE Negative Ery/uL (NEGATIVE); COLOR,URINE Dark (YELLOW); KETONES,URINE Trace (NEGATIVE); LEUKOCYTE ESTERASE ,URINE Negative (NEGATIVE); NITRITE, URINE Negative (NEGATIVE); PH,URINE 5.5 (5.0-8.0); PROTEIN,URINE 100 mg/dl (NEGATIVE); UGLUCOSE >=1000 mg/dL (NEGATIVE); UROBILINOGEN,URINE 0.2 EU/dL (0.2)
[2017-05-17] MEDS ORDERED: METOCLOPRAMIDE HCL 10 MG/2 ML VIAL IV ONE (18:30)
[2017-05-17 18:33] LABS: BACTERIA,URINE Rare /HPF (None Seen); HYALINE CASTS, URINE Rare /LPF (None Seen); RBC,URINE 0-2 /HPF (0-2); SQUAMOUS EPITHELIAL CELL,UR Few /HPF (None Seen); WBC,URINE 0-2 /HPF (0-3); YEAST,URINE Few /HPF (None Seen)
--- NOTE | 2017-05-17 19:04 | NUR ---
Patient is resting comfortably in bed with eyes closed. Easily aroused. VSS
--- NOTE | 2017-05-17 20:20 | NUR ---
Patient discharged to home in stable condition. Written and verbal after care instructions given. Patient verbalizes understanding of instruction. Patient is ambulatory with steady gait. Instructed patient not to drive and he said his is outside to pick him up. vss. nad noted. No further complaints.
[2017-05-17 20:21] VITALS: BP 148/82
== END 2017-05-17 20:56 | disposition home or self-care (01) ==
LOC: ER 14:56
DX: N50.811 Right testicular pain (principal); G89.29 Other chronic pain; E11.9 Type 2 diabetes mellitus without complications; I10 Essential (primary) hypertension; Z79.4 Long term (current) use of insulin; Z88.0 Allergy status to penicillin; Z88.2 Allergy status to sulfonamides; Z88.1 Allergy status to other antibiotic agents; Z88.6 Allergy status to analgesic agent
CPT/HCPCS: 36415; 51701; 71045; 74176; 76870; 80048; 80076; 80305; 81001; 82962; 85025; 93005; 96361; 96374; 96375; 96376; 99285; A4606; J2765; J7030; 81000-TC; Z7610

== ENCOUNTER 2017-11-03 20:51 | Emergency (ER) | payer MEDICARE ==
[~2017-11-03] VITALS: Ht 175.3 cm; Wt 97.5 kg
[2017-11-03] MEDS ORDERED: HYDROMORPHONE 1 MG/1 ML DISP.SYRIN ONE (22:12)
[2017-11-03] MEDS ORDERED: ONDANSETRON HCL/PF 4 MG/2 ML VIAL ONE ×2 (22:12→23:41)
--- NOTE | 2017-11-03 22:19 | NUR ---
PT BBSELF FROM HOME C/C LOWER BACK PAIN AND R HAND PAIN S/P MECHANICAL FALL AT HOME, -KO. PT STATES PAIN 01/23. PT ALSO STATES HE RECHEKED HIS BS AND IT WAS "500". NO S/S OF ACUTE DISTRESS NOTED AT THIS TIME. PT IS AAOX4. RESP EVEN AND UNLABORED. PT PLACED ON HELP DESK SUPPORT SPECIALIST AND POX. PT SAFETY IN PLACE. BEDSIDE FOR SLY
[2017-11-03 22:26] LABS: BASOPHILS # (AUTO) 0.1 /CMM (0.0-0.2); BASOPHILS % (AUTO) 1.3 % (0.0-2.0); HEMATOCRIT 40 % (39-51); HEMOGLOBIN 13.6 g/dL (13.5-17.5); LYMPHOCYTES % (AUTO) 34.9 % (20.0-44.0); MEAN CORPUSCULAR HEMOGLOBIN 31 PG (26.0-33.0); MEAN CORPUSCULAR HGB CONC 34 g/dl (31.0-36.0); MEAN CORPUSCULAR VOLUME 91 fL (80-96); MONOCYTES # (AUTO) 0.6 /CMM (0.1-1.30); MONOCYTES % (AUTO) 7.2 % (2.0-12.0); NEUTROPHILS # (AUTO) 4.5 /CMM (1.8-8.9); NEUTROPHILS % (AUTO) 51.6 % (43.0-81.0); PLATELET COUNT (AUTO) 167 /CMM (150-450); RDW COEFFICIENT OF VARIATION 12.7 (11.5-15.0); RED BLOOD CELL COUNT(AUTO) 4.37 MIL/uL (4.5-6.0); WHITE BLOOD COUNT (AUTO) 8.6 K/uL (4.3-11.0)
[2017-11-03] MEDS ORDERED: IV NS 0.9% 1,000 ML BAG IV ONE (22:30)
[2017-11-03] MEDS ORDERED: HYDROMORPHONE INJ 2 MG/ML DISP.SYRIN IV ONE (22:30)
[2017-11-03] MEDS ORDERED: ONDANSETRON HCL/PF 4 MG/2 ML VIAL IVP ONE (22:30)
--- NOTE | 2017-11-03 22:32 | NUR ---
PT TO CT
[2017-11-03 22:39] LABS: CALCIUM, SERUM 8.2 mg/dL (8.5-10.1); CREATININE 1.6 mg/dL (0.6-1.3)
[2017-11-03 22:42] LABS: POTASSIUM 2.6 mmol/L (3.5-5.1)
[2017-11-03] MEDS ORDERED: POTASSIUM CHLORIDE 20 MEQ TAB.PRT.SR PO ONE ×2 (23:00→23:09)
[2017-11-03 23:08] LABS: ABG BASE EXCESS 6.4 mmol/L; ABG OXYGEN SATURATION 81.1 % (92.0-98.5); ABG PCO2 35.1 mmHg (35.0-45.0); ABG PH 7.535 (7.350-7.450); ABG PO2 43.6 mmHg (75.0-100.0); COHb 0.5 % (0.5-1.5); MetHb 0.4 % (0.0-1.5); O2Hb 80.4 % (94.0-97.0); SITE, ABG A-Line; VENT MODE, BG ROOM AIR
[2017-11-03 23:16] LABS: APPEARANCE,URINE CLEAR (CLEAR); BILIRUBIN,URINE NEGATIVE (NEGATIVE); BLOOD, URINE NEGATIVE Ery/uL (NEGATIVE); COLOR,URINE YELLOW (YELLOW); KETONES,URINE NEGATIVE (NEGATIVE); LEUKOCYTE ESTERASE ,URINE NEGATIVE (NEGATIVE); NITRITE, URINE NEGATIVE (NEGATIVE); PROTEIN,URINE NEGATIVE (NEGATIVE); UGLUCOSE 3+ mg/dL (NEGATIVE); UROBILINOGEN,URINE 0.2 EU/dL (0.2)
[2017-11-03 23:19] LABS: BACTERIA,URINE None seen /HPF (None Seen); RBC,URINE NONE SEEN /HPF (0-2); SQUAMOUS EPITHELIAL CELL,UR Few /HPF (None Seen); WBC,URINE 0-2 /HPF (0-3)
[2017-11-03] MEDS ORDERED: KETOROLAC TROMETHAMINE INJ 30 MG/ML VIAL ONE (23:41)
[2017-11-03] MEDS ORDERED: LORAZEPAM INJ 2 MG/ML VIAL ONE (23:42)
[2017-11-04] MEDS ORDERED: ONDANSETRON HCL/PF 4 MG/2 ML VIAL IV ONE
[2017-11-04] MEDS ORDERED: LORAZEPAM INJ 2 MG/ML VIAL IV ONE
[2017-11-04] MEDS ORDERED: KETOROLAC TROMETHAMINE INJ 30 MG/ML VIAL IV ONE
[2017-11-04 00:33] VITALS: BP 134/75
== END 2017-11-04 00:33 | disposition home or self-care (01) ==
LOC: ER 20:52
DX: S39.012A Strain of muscle, fascia and tendon of lower back, initial encounter (principal); S30.0XXA Contusion of lower back and pelvis, initial encounter; S60.221A Contusion of right hand, initial encounter; E11.65 Type 2 diabetes mellitus with hyperglycemia; E87.6 Hypokalemia; G89.29 Other chronic pain; I10 Essential (primary) hypertension; Z98.890 Other specified postprocedural states; Z88.0 Allergy status to penicillin; Z88.2 Allergy status to sulfonamides; Z88.1 Allergy status to other antibiotic agents; Z88.6 Allergy status to analgesic agent; Z79.4 Long term (current) use of insulin; Z79.899 Other long term (current) drug therapy; W01.0XXA Fall on same level from slipping, tripping and stumbling without subsequent striking against object, initial encounter; Y93.89 Activity, other specified; Y92.89 Other specified places as the place of occurrence of the external cause; Y99.8 Other external cause status
CPT/HCPCS: 36415; 36600; 72131-TC; 73130-TC; 80048-TC; 81000-TC; 85025-TC; A4606; J1170; J1885; J2060; J2405; J7030; Z7610

== ENCOUNTER 2018-12-20 09:45 | Outpatient (CLI) | payer MEDICARE, MEDICAID ==
[~2018-12-20 09:45] MED LIST changes: -AMLO5TAB2 PO; +AMLO5TAB9 PO; -LOSA100T15 PO; +LOSA100T31 PO
== END 2018-12-20 23:59 | disposition home or self-care (01) ==
LOC: WOU 09:45
PROVIDERS: ATTEND Podiatrist Foot & Ankle Surgery
DX: E11.40 Type 2 diabetes mellitus with diabetic neuropathy, unspecified (principal); M72.2 Plantar fascial fibromatosis; B35.1 Tinea unguium; I10 Essential (primary) hypertension; G89.4 Chronic pain syndrome; Z79.4 Long term (current) use of insulin
CPT/HCPCS: 82962; G0463

== ENCOUNTER 2024-01-23 10:46 | Inpatient (IN) | payer MEDICARE, OTHER ==
[~2024-01-23] VITALS: Ht 165.1 cm; Wt 86.2 kg
[~2024-01-23 10:46] MED LIST changes: +AMLO-212 PO; -AMLO5TAB9 PO
[2024-01-23] MEDS ORDERED: DEXTROSE 50%-WATER 50 ML DISP.SYRIN IV PRN (11:30)
[2024-01-23 11:39] LABS: BASOPHILS # (AUTO) 0.1 K/uL (0.0-0.2); BASOPHILS % (AUTO) 1.2 % (0.0-2.0); EOSINOPHILS # (AUTO) 0.1 K/uL (0.0-0.7); EOSINOPHILS % (AUTO) 2.2 % (0.0-6.0); HEMATOCRIT 46 % (39-51); HEMOGLOBIN 15.7 g/dL (13.5-17.5); LYMPHOCYTES # (AUTO) 1.9 K/uL (0.8-4.8); LYMPHOCYTES % (AUTO) 32.2 % (20.0-44.0); MEAN CORPUSCULAR HEMOGLOBIN 32 PG (26.0-33.0); MEAN CORPUSCULAR HGB CONC 34 g/dl (31.0-36.0); MEAN CORPUSCULAR VOLUME 93 fL (80-96); MONOCYTES # (AUTO) 0.4 K/uL (0.1-1.30); MONOCYTES % (AUTO) 6.5 % (2.0-12.0); NEUTROPHILS # (AUTO) 3.5 K/uL (1.8-8.9); NEUTROPHILS % (AUTO) 57.9 % (43.0-81.0); PLATELET COUNT (AUTO) 194 K/uL (150-450); RED BLOOD CELL COUNT(AUTO) 4.91 MIL/uL (4.5-6.0)
[2024-01-23 11:48] LABS: INR 1.02 (0.91-1.10); PROTHROMBIN TIME 10.8 SECS (9.2-11.1)
[2024-01-23] MEDS ORDERED: MORPHINE SULFATE INJ 4 MG/ML DISP.SYRIN ONE (11:59)
[2024-01-23] MEDS ORDERED: ONDANSETRON HCL/PF 4 MG/2 ML VIAL ONE (11:59)
[2024-01-23] MEDS: ONDANSETRON HCL/PF 4 MG/2 ML VIAL IV STA (12:00)
[2024-01-23] MEDS: MORPHINE SULFATE INJ 4 MG/ML DISP.SYRIN IV STA (12:05)
[2024-01-23 12:06] LABS: ALANINE AMINOTRANSFERASE 42 U/L (12-78); ALBUMIN 3.9 g/dL (3.4-5.0); ALKALINE PHOSPHATASE 103 U/L (46-116); ASPARTATE AMINOTRANSFERASE 28 U/L (15-37); BILIRUBIN,DIRECT 0.2 mg/dL (0.0-0.2); CALCIUM, SERUM 9.7 mg/dL (8.5-10.1); CARBON DIOXIDE 27 mmol/L (21-32); CHLORIDE 100 mmol/L (98-107); CREATININE 0.9 mg/dL (0.6-1.3); GLUCOSE 359 mg/dL (74-106); POTASSIUM 3.5 mmol/L (3.5-5.1); SODIUM SERUM 137 mmol/L (136-145); UREA NITROGEN, BLOOD 21 mg/dL (7-18)
[2024-01-23] MEDS ORDERED: TAMS-12 PO (12:48)
[2024-01-23] MEDS ORDERED: ASPI-1420 PO (12:48)
[2024-01-23] MEDS ORDERED: HYDR100T27 PO (12:48)
[2024-01-23] MEDS ORDERED: INSU3INS9 SQ (12:48)
[2024-01-23] MEDS ORDERED: AMLO-213 PO (12:48)
[2024-01-23] MEDS ORDERED: METO-358 PO (12:48)
[2024-01-23] MEDS ORDERED: FAMO40TA7 PO (12:48)
[2024-01-23] MEDS ORDERED: POTA-88 PO (12:48)
[2024-01-23] MEDS ORDERED: MAGN400T52 PO (12:48)
[2024-01-23] MEDS ORDERED: NICO1PAT44 TP (12:48)
[2024-01-23] MEDS ORDERED: CYAN10006 IM (12:48)
[2024-01-23] MEDS ORDERED: OXYC-133 PO (12:48)
[2024-01-23] MEDS ORDERED: EMPA25TA PO (12:48)
[2024-01-23] MEDS ORDERED: INSU100I30 SQ (12:48)
[2024-01-23] MEDS ORDERED: OMEP40CA21 PO (12:49)
[2024-01-23] MEDS: hydrALAZINE HCL 50 MG TABLET PO SCH (13:34)
[2024-01-23] MEDS: ENOXAPARIN SODIUM 40 MG/0.4 ML DISP.SYRIN SQ SCH (13:35)
[2024-01-23] MEDS: INSULIN REGULAR, HUMAN 100 UNIT/ML 3 ML VIAL SQ PRN (13:38)
[2024-01-23] MEDS: BLOOD SUGAR DIAGNOSTIC 1 EACH STRIP VI SCH (13:39)
[2024-01-23] MEDS: INSULIN GLARGINE, 100 UNIT/ML CARTRIDGE SQ SCH (13:41)
[2024-01-23] MEDS: MORPHINE SULFATE INJ 2 MG/ML DISP.SYRIN IV PRN (16:17)
[2024-01-23] MEDS: PREGABALIN 25 MG CAPSULE PO SCH (17:27)
[2024-01-23] MEDS: AMLODIPINE BESYLATE 5 MG TABLET PO SCH (17:27)
[2024-01-23 20:00] VITALS: BP 136/85; TEMP 97.7; O2SAT 98
[2024-01-23] MEDS: QUETIAPINE FUMARATE 25 MG TABLET PO SCH (21:25)
[2024-01-23] MEDS: *INSULIN REGULAR(HUMULIN R)HUM 100 UNIT/ML VIAL SQ PRN (21:42)
[2024-01-24] VITALS: BP 130/94; TEMP 97.9; O2SAT 96
[2024-01-24 04:00] VITALS: BP 120/83; TEMP 97.3; O2SAT 98
[2024-01-24 07:18] LABS: BASOPHILS # (AUTO) 0.1 K/uL (0.0-0.2); BASOPHILS % (AUTO) 1.1 % (0.0-2.0); EOSINOPHILS # (AUTO) 0.4 K/uL (0.0-0.7); EOSINOPHILS % (AUTO) 5.6 % (0.0-6.0); HEMATOCRIT 43 % (39-51); HEMOGLOBIN 14.7 g/dL (13.5-17.5); LYMPHOCYTES # (AUTO) 3.1 K/uL (0.8-4.8); LYMPHOCYTES % (AUTO) 44.8 % (20.0-44.0); MEAN CORPUSCULAR HEMOGLOBIN 32 PG (26.0-33.0); MEAN CORPUSCULAR HGB CONC 35 g/dl (31.0-36.0); MEAN CORPUSCULAR VOLUME 93 fL (80-96); MONOCYTES # (AUTO) 0.5 K/uL (0.1-1.30); MONOCYTES % (AUTO) 6.5 % (2.0-12.0); NEUTROPHILS # (AUTO) 2.9 K/uL (1.8-8.9); PLATELET COUNT (AUTO) 177 K/uL (150-450); RED BLOOD CELL COUNT(AUTO) 4.58 MIL/uL (4.5-6.0); RED CELL DISTRIBUTION WIDTH 12.7 % (11.5-15.0); WHITE BLOOD COUNT (AUTO) 6.9 K/uL (4.3-11.0)
[2024-01-24 07:30] LABS: ALBUMIN 3.3 g/dL (3.4-5.0); BILIRUBIN,TOTAL 0.9 mg/dL (0.2-1.0); CALCIUM, SERUM 8.9 mg/dL (8.5-10.1); CREATININE 0.9 mg/dL (0.6-1.3); PHOSPHORUS 3.9 mg/dL (2.5-4.9); POTASSIUM 3.2 mmol/L (3.5-5.1); TOTAL PROTEIN, SERUM 6.8 g/dL (6.4-8.2)
[2024-01-24 08:00] VITALS: BP 139/97; TEMP 97.7; O2SAT 96
[2024-01-24] MEDS: LOSARTAN POTASSIUM 50 MG TABLET PO SCH (08:55)
[2024-01-24] MEDS: POTASSIUM CHLORIDE 20 MEQ TAB.PRT.SR PO SCH (11:18)
[2024-01-24 12:00] VITALS: BP 146/96; TEMP 97.7; O2SAT 96
[2024-01-24 14:10] LABS: APPEARANCE,URINE CLEAR (CLEAR); BILIRUBIN,URINE NEGATIVE (NEGATIVE); BLOOD, URINE NEGATIVE Ery/uL (NEGATIVE); COLOR,URINE YELLOW (YELLOW); KETONES,URINE NEGATIVE (NEGATIVE); LEUKOCYTE ESTERASE ,URINE NEGATIVE (NEGATIVE); NITRITE, URINE NEGATIVE (NEGATIVE); PROTEIN,URINE NEGATIVE (NEGATIVE); UGLUCOSE 3+ mg/dL (NEGATIVE); UROBILINOGEN,URINE 0.2 EU/dL (0.2)
[2024-01-24 14:21] LABS: ADD URINE CULTURE NO; BACTERIA,URINE Few /HPF (None Seen); MUCUS,URINE Few /LPF (None Seen); RBC,URINE 0-2 /HPF (0-2); SQUAMOUS EPITHELIAL CELL,UR 0-2 /HPF (None Seen); WBC,URINE 0-2 /HPF (0-3)
[2024-01-24 16:00] VITALS: BP 109/79; TEMP 97.7; O2SAT 96
[2024-01-24] MEDS: INSULIN GLARGINE, 100 UNIT/ML CARTRIDGE SQ SCH (17:52)
[2024-01-24 20:00] VITALS: BP 138/83; TEMP 97.9; O2SAT 96
[2024-01-25] VITALS (7 sets, daily range): BP systolic 112–155; BP diastolic 71–100; TEMP 97.5–98.2; O2SAT 96–100
[2024-01-25 07:21] LABS: CALCIUM, SERUM 8.7 mg/dL (8.5-10.1); CREATININE 0.9 mg/dL (0.6-1.3); POTASSIUM 3.3 mmol/L (3.5-5.1)
[2024-01-25] MEDS: POTASSIUM CHLORIDE 20 MEQ TAB.PRT.SR PO SCH (10:48)
[2024-01-25] MEDS: INSULIN GLARGINE, 100 UNIT/ML CARTRIDGE SQ STA (10:54)
[2024-01-25] MEDS ORDERED: NALOXONE HCL 0.4 MG/ML AMPUL IV PRN (11:00)
[2024-01-25] MEDS: oxyCODONE HCL SR 10MG TAB.SR.12H PO PRN (12:10)
[2024-01-25] MEDS ORDERED: INSU100I30 SQ (12:16)
[2024-01-25] MEDS: LACTULOSE 10 G/15 ML UDC (PYXIS) PO STA (15:40)
[2024-01-25] MEDS: DOCUSATE SODIUM LIQ 100 MG/10 ML UDC PO SCH (15:40)
[2024-01-25] MEDS: POLYETHYLENE GLYCOL 3350 17 GM POWD.PACK PO SCH (15:41)
[2024-01-25] MEDS: INSULIN GLARGINE, 100 UNIT/ML CARTRIDGE SQ SCH (18:24)
[2024-01-26] VITALS: BP 138/99; TEMP 98.1; O2SAT 96
[2024-01-26 04:00] VITALS: BP 145/99; TEMP 97.9; O2SAT 97
[2024-01-26 06:36] LABS: CALCIUM, SERUM 9.3 mg/dL (8.5-10.1); CREATININE 0.8 mg/dL (0.6-1.3); POTASSIUM 3.2 mmol/L (3.5-5.1)
[2024-01-26 08:00] VITALS: BP 116/79; TEMP 98.1; O2SAT 96
[2024-01-26] MEDS: NICOTINE PATCH (21MG) 21 MG PATCH.TD24 TD SCH (09:51)
[2024-01-26] MEDS: POTASSIUM CHLORIDE 20 MEQ TAB.PRT.SR PO SCH (10:50)
[2024-01-26 12:00] VITALS: BP 148/108; TEMP 98.1; O2SAT 96
[2024-01-26] MEDS: ONDANSETRON HCL/PF 4 MG/2 ML VIAL IVP PRN (12:36)
[2024-01-26 13:50] VITALS: BP 170/107
[2024-01-26] MEDS: hydrALAZINE HCL IV 20 MG VIAL IV PRN (13:50)
== END 2024-01-26 14:19 | DRG 305 ==
LOC: ER 10:58 → TELE1 11:28 → MEDSG1 01-26 10:13
PROVIDERS: ADMIT Internal Medicine; ATTEND Internal Medicine
DX: I16.0 Hypertensive urgency (principal); I10 Essential (primary) hypertension; E11.65 Type 2 diabetes mellitus with hyperglycemia; E11.40 Type 2 diabetes mellitus with diabetic neuropathy, unspecified; N50.3 Cyst of epididymis; E78.5 Hyperlipidemia, unspecified; Z89.222 Acquired absence of left upper limb above elbow; Z86.73 Personal history of transient ischemic attack (TIA), and cerebral infarction without residual deficits; Z98.890 Other specified postprocedural states; G89.29 Other chronic pain; Z88.0 Allergy status to penicillin; Z88.2 Allergy status to sulfonamides; Z88.1 Allergy status to other antibiotic agents; Z88.6 Allergy status to analgesic agent; Z79.899 Other long term (current) drug therapy; Z79.4 Long term (current) use of insulin; Z79.84 Long term (current) use of oral hypoglycemic drugs; Z79.82 Long term (current) use of aspirin; F32.A Depression, unspecified; G47.00 Insomnia, unspecified
CPT/HCPCS: 36415; 70450-TC; 71045-TC; 71250-TC; 76870-TC; 80048-TC; 80053-TC; 80076-TC; 81001; 82962-TC; 83735-TC; 84100-TC; 84484-TC; 85025-TC; 85730-TC; 87081-TC; G0378; J0360; J1650; J1815; J2270; J2405

== ENCOUNTER 2024-02-17 15:20 | Emergency (ER) | payer MEDICARE, OTHER ==
[~2024-02-17] VITALS: Ht 175.3 cm; Wt 87.5 kg
[~2024-02-17 15:20] MED LIST changes: -ACET-868 PO; -AMLO-212 PO; +AMLO-213 PO; +ASPI-1420 PO; -CLON0.1T PO; +CYAN10006 IM; -CYCL5TAB PO; +EMPA25TA PO; +FAMO40TA7 PO; -HYDR-4077 PO; +HYDR100T27 PO; -HYDR4TAB57 PO; -INSU100I19 SQ; +INSU100I30 SQ; -LORA2VIA6 SQ; -MAG30ORA PO; -MAGN400O6 PO; +MAGN400T52 PO; +METO-358 PO; +NICO1PAT44 TP; +OMEP40CA21 PO; -OXYC-128 PO; +OXYC-133 PO; +POTA-88 PO; -PREG75CA PO; -QUET25TA PO; +TAMS-12 PO
[2024-02-17 15:58] LABS: BASOPHILS # (AUTO) 0.1 K/uL (0.0-0.2); BASOPHILS % (AUTO) 0.9 % (0.0-2.0); EOSINOPHILS # (AUTO) 0.4 K/uL (0.0-0.7); EOSINOPHILS % (AUTO) 5.5 % (0.0-6.0); HEMATOCRIT 42 % (39-51); HEMOGLOBIN 14.3 g/dL (13.5-17.5); LYMPHOCYTES # (AUTO) 2.6 K/uL (0.8-4.8); LYMPHOCYTES % (AUTO) 36.1 % (20.0-44.0); MEAN CORPUSCULAR HEMOGLOBIN 32 PG (26.0-33.0); MEAN CORPUSCULAR HGB CONC 34 g/dl (31.0-36.0); MEAN CORPUSCULAR VOLUME 93 fL (80-96); MONOCYTES # (AUTO) 0.5 K/uL (0.1-1.30); MONOCYTES % (AUTO) 7.1 % (2.0-12.0); NEUTROPHILS # (AUTO) 3.7 K/uL (1.8-8.9); NEUTROPHILS % (AUTO) 50.4 % (43.0-81.0); PLATELET COUNT (AUTO) 162 K/uL (150-450); RED BLOOD CELL COUNT(AUTO) 4.52 MIL/uL (4.5-6.0); RED CELL DISTRIBUTION WIDTH 12.3 % (11.5-15.0); WHITE BLOOD COUNT (AUTO) 7.3 K/uL (4.3-11.0)
[2024-02-17 16:04] LABS: CALCIUM, SERUM 8.9 mg/dL (8.5-10.1); POTASSIUM 3.1 mmol/L (3.5-5.1)
[2024-02-17] MEDS ORDERED: MORPHINE SULFATE INJ 4 MG/ML DISP.SYRIN ONE ×2 (16:30→19:02)
[2024-02-17] MEDS ORDERED: POTASSIUM CHLORIDE 20 MEQ TAB.PRT.SR PO ONE (16:31)
[2024-02-17] MEDS: POTASSIUM CHLORIDE 20 MEQ TAB.PRT.SR PO ONE (16:36)
[2024-02-17] MEDS: MORPHINE SULFATE INJ 2 MG/ML DISP.SYRIN IV ONE ×2 (16:46→19:00)
[2024-02-17 17:56] LABS: APPEARANCE,URINE CLEAR (CLEAR); BILIRUBIN,URINE NEGATIVE (NEGATIVE); BLOOD, URINE NEGATIVE Ery/uL (NEGATIVE); COLOR,URINE YELLOW (YELLOW); KETONES,URINE TRACE mg/dL (NEGATIVE); LEUKOCYTE ESTERASE ,URINE NEGATIVE (NEGATIVE); NITRITE, URINE NEGATIVE (NEGATIVE); PROTEIN,URINE NEGATIVE (NEGATIVE); UGLUCOSE 3+ mg/dL (NEGATIVE); UROBILINOGEN,URINE 0.2 EU/dL (0.2)
[2024-02-17 17:58] LABS: ADD URINE CULTURE NO; BACTERIA,URINE Few /HPF (None Seen); RBC,URINE 0-2 /HPF (0-2); SQUAMOUS EPITHELIAL CELL,UR Rare /HPF (None Seen); WBC,URINE 0-2 /HPF (0-3)
[2024-02-17 17:59] LABS: HYALINE CASTS, URINE Few /LPF (None Seen)
[2024-02-17 19:35] VITALS: BP 118/76; TEMP 98; O2SAT 96
== END 2024-02-17 19:36 ==
LOC: ER 15:27
DX: I86.1 Scrotal varices (principal); E11.9 Type 2 diabetes mellitus without complications; I10 Essential (primary) hypertension; Z79.4 Long term (current) use of insulin; Z79.82 Long term (current) use of aspirin; Z79.84 Long term (current) use of oral hypoglycemic drugs; Z79.899 Other long term (current) drug therapy; Z88.0 Allergy status to penicillin; Z88.2 Allergy status to sulfonamides; Z86.79 Personal history of other diseases of the circulatory system; Z87.39 Personal history of other diseases of the musculoskeletal system and connective tissue
CPT/HCPCS: 99285; 96374; 96375; 76870; 85025; 80048; 81001; 36415; J2270 ×2

== ENCOUNTER 2025-03-03 15:50 | Inpatient (IN) | payer MEDICARE, OTHER ==
[~2025-03-03] VITALS: Ht 170.2 cm; Wt 86.2 kg
[2025-03-03] MEDS: IV NS 0.9% 1,000 ML BAG IV ONE ×2 (16:15→17:40)
[2025-03-03 16:20] LABS: FRACTIONATED INSPIRED OXYGEN-V 21.0 %; SITE, VBG VBG - N/A; VBG BASE EXCESS 1.1 mmol/L (-2.0-3.0); VBG HCO3 23.2 mmol/L (22.0-29.0); VBG MetHb 0.1 % (0.5-1.5); VBG OXYGEN SATURATION 39.7 % (60.0-85.0); VBG PCO2 31.3 mmHg (38.0-54.0); VBG PH 7.488 (7.320-7.430); VBG PO2 22.7 mmHg (23.0-48.0); VBG TOTAL HEMOGLOBIN 19.0 G/dL (13.5-17.5)
[2025-03-03 16:21] LABS: PLATELET COUNT (AUTO) 148 K/uL (150-450); RED BLOOD CELL COUNT(AUTO) 5.92 MIL/uL (4.5-6.0); RED CELL DISTRIBUTION WIDTH 13.4 % (11.5-15.0); WHITE BLOOD COUNT (AUTO) 8.6 K/uL (4.3-11.0)
[2025-03-03 16:35] LABS: ASPARTATE AMINOTRANSFERASE 17 U/L (15-37); CALCIUM, SERUM 8.9 mg/dL (8.5-10.1); CREATININE 1.0 mg/dL (0.6-1.3); SODIUM SERUM 129 mmol/L (136-145); TOTAL PROTEIN, SERUM 8.2 g/dL (6.4-8.2); UREA NITROGEN, BLOOD 19 mg/dL (7-18)
[2025-03-03] MEDS ORDERED: INSULIN REGULAR, HUMAN 100 UNIT/ML 10 ML VIAL ONE (16:53)
[2025-03-03] MEDS ORDERED: POTASSIUM CHLORIDE 20 MEQ POWDER PACKET ONE (16:53)
[2025-03-03] MEDS: INSULIN REGULAR, HUMAN 100 UNIT/ML 10 ML VIAL SQ ONE (17:00)
[2025-03-03] MEDS: POTASSIUM CHLORIDE 20 MEQ POWDER PACKET PO ONE (17:00)
[2025-03-03] MEDS ORDERED: MORPHINE SULFATE INJ 2 MG/ML DISP.SYRIN ONE (17:02)
[2025-03-03] MEDS: MORPHINE SULFATE INJ 2 MG/ML DISP.SYRIN IV ONE (17:05)
[2025-03-03] MEDS ORDERED: CYCL5TAB PO (17:26)
[2025-03-03] MEDS ORDERED: PREG75CA PO (17:26)
[2025-03-03] MEDS ORDERED: OLME1TAB92 PO (17:26)
[2025-03-03] MEDS ORDERED: COLC0.6C3 PO (17:26)
[2025-03-03] MEDS ORDERED: INSULIN HUMULIN R SQ (17:26)
[2025-03-03] MEDS ORDERED: INSU3INS9 SQ (17:26)
[2025-03-03] MEDS ORDERED: ONDA-97 PO (17:26)
[2025-03-03] MEDS ORDERED: INSULIN NOVOLIN R SQ (17:26)
[2025-03-03] MEDS ORDERED: METR-147 PO (17:26)
[2025-03-03] MEDS ORDERED: LINA72CA PO (17:26)
[2025-03-03] MEDS ORDERED: POTA-10 PO (17:26)
[2025-03-03] MEDS ORDERED: INSU100I30 SQ (17:26)
[2025-03-03] MEDS ORDERED: MEMA10TA PO (17:26)
[2025-03-03] MEDS ORDERED: QUET25TA PO (17:26)
[2025-03-03] MEDS ORDERED: BUSP10TA3 PO (17:26)
[2025-03-03] MEDS ORDERED: MIRT-90 PO (17:26)
[2025-03-03 20:25] VITALS: BP 171/115; TEMP 97.5; O2SAT 99
[2025-03-03 21:00] VITALS: BP 150/84
[2025-03-03] MEDS ORDERED: *INSULIN REGULAR(HUMULIN R)HUM 100 UNIT/ML VIAL SQ PRN (21:00)
[2025-03-03] MEDS ORDERED: ACETAMINOPHEN 325 MG TABLET PO PRN (21:00)
[2025-03-03] MEDS ORDERED: MAG HYDROX/AL HYDROX/SIMETH 30 ML UDC PO PRN (21:00)
[2025-03-03] MEDS ORDERED: MAGNESIUM HYDROXIDE 30 ML UDC PO PRN (21:00)
[2025-03-03] MEDS ORDERED: DEXTROSE 50%-WATER 50 ML DISP.SYRIN IV PRN (21:00)
[2025-03-03] MEDS ORDERED: ONDANSETRON HCL/PF 4 MG/2 ML VIAL IVP PRN (21:00)
[2025-03-03] MEDS: QUETIAPINE FUMARATE 25 MG TABLET PO SCH (21:51)
[2025-03-03] MEDS: TAMSULOSIN 0.4 MG CAP.SR.24H PO SCH (21:51)
[2025-03-03] MEDS: MIRTAZAPINE 15 MG TABLET PO SCH (21:52)
[2025-03-03] MEDS: BLOOD SUGAR DIAGNOSTIC 1 EACH STRIP VI SCH (21:52)
[2025-03-03] MEDS: IV NS 0.9% 1,000 ML IV PRN (21:53)
[2025-03-03] MEDS: ZOLPIDEM TARTRATE 10 MG TABLET PO PRN (22:00)
[2025-03-03] MEDS ORDERED: BLOOD SUGAR DIAGNOSTIC 1 EACH STRIP IN SCH (22:00)
[2025-03-03] MEDS: INSULIN GLARGINE, 100 UNIT/ML CARTRIDGE SQ SCH (22:37)
[2025-03-04] MEDS: CYCLOBENZAPRINE 10 MG TABLET PO PRN (01:08)
[2025-03-04] MEDS: PANTOPRAZOLE 40 MG TABLET.DR PO SCH (06:33)
[2025-03-04] MEDS: INSULIN REGULAR, HUMAN 100 UNIT/ML 3 ML VIAL SQ PRN (06:42)
[2025-03-04 07:20] LABS: PLATELET COUNT (AUTO) 122 K/uL (150-450); RED BLOOD CELL COUNT(AUTO) 5.57 MIL/uL (4.5-6.0); RED CELL DISTRIBUTION WIDTH 13.4 % (11.5-15.0); WHITE BLOOD COUNT (AUTO) 7.8 K/uL (4.3-11.0)
[2025-03-04 07:30] VITALS: BP 157/123; TEMP 97.2; O2SAT 96
[2025-03-04] MEDS ORDERED: Medication Not On Formulary EA (Linaclotide (Linzess) 72 MCG) PO SCH (07:30)
[2025-03-04 07:56] LABS: LDL 83.0 mg/dL (0-99)
[2025-03-04] MEDS: FLUOXETINE HCL 20 MG CAPSULE PO SCH (08:49)
[2025-03-04] MEDS: FAMOTIDINE (20 MG) 20 MG TABLET PO SCH (08:50)
[2025-03-04] MEDS: PREGABALIN 25 MG CAPSULE PO SCH ×2 (08:50→20:16)
[2025-03-04] MEDS: MAGNESIUM OXIDE 400 MG TABLET PO SCH (08:50)
[2025-03-04] MEDS: METOPROLOL SUCCINATE 50 MG TAB.SR.24H PO SCH (08:50)
[2025-03-04] MEDS: AMLODIPINE BESYLATE 10 MG TABLET PO SCH (08:50)
[2025-03-04] MEDS: MEMANTINE HCL 5 MG TABLET PO SCH (08:51)
[2025-03-04] MEDS: LOSARTAN POTASSIUM 50 MG TABLET PO SCH (08:55)
[2025-03-04] MEDS: EMPAGLIFLOZIN 25 MG TABLET PO SCH (08:55)
[2025-03-04] MEDS ORDERED: Medication Not On Formulary EA (Olmesartan/Hydrochlorothiazide (Olmesartan-Hctz 40-25 mg PO SCH (09:00)
[2025-03-04] MEDS ORDERED: Medication Not On Formulary EA (Insulin Glargine/Lixisenatide (Soliqua 100 Unit-33 Mcg/m SQ SCH (09:00)
[2025-03-04 09:49] LABS: ASPARTATE AMINOTRANSFERASE 18.0 U/L (15-37); CALCIUM, SERUM 8.4 mg/dL (8.5-10.1); CREATININE 0.8 mg/dL (0.6-1.3); PHOSPHORUS 2.3 mg/dL (2.5-4.9); SODIUM SERUM 135.0 mmol/L (136-145); TOTAL PROTEIN, SERUM 6.6 g/dL (6.4-8.2); UREA NITROGEN, BLOOD 14.0 mg/dL (7-18)
[2025-03-04] MEDS: HYDROCODONE/APAP 10/325MG TABLET PO PRN (12:05)
[2025-03-04] MEDS: LIDOCAINE 5% (PATCH) 1 EA PATCH TP SCH (13:31)
[2025-03-04 16:00] VITALS: BP 135/92; TEMP 97.2; O2SAT 95
[2025-03-04] MEDS: K PHOS NEUTRAL 250 MG TABLET PO ONE (16:09)
[2025-03-04] MEDS: oxyCODONE/APAP (5/325 MG) 1 UDTAB TABLET PO PRN (16:10)
[2025-03-04 20:00] VITALS: BP 133/89; TEMP 98.1; O2SAT 96
[2025-03-04] MEDS ORDERED: DEXTROSE 50%-WATER 50 ML DISP.SYRIN IV PRN (23:30)
[2025-03-04] MEDS ORDERED: hydrALAZINE HCL IV 20 MG VIAL IV PRN (23:30)
[2025-03-04] MEDS: IV NS 0.9% 1,000 ML IV SCH (23:46)
[2025-03-04] MEDS: dexaMETHasone SOD PHOSPHATE 10 MG/ML VIAL IV STA (23:46)
[2025-03-05] MEDS: POTASSIUM CHLORIDE 20 MEQ TAB.PRT.SR PO ONE (00:34)
[2025-03-05] MEDS: BLOOD SUGAR DIAGNOSTIC 1 EACH STRIP IN SCH (00:35)
[2025-03-05] MEDS: POTASSIUM CHLORIDE 10 MEQ/50 ML PREMIXED IVPB FOR PERIPHERAL LINE IV SCH (01:32)
[2025-03-05] MEDS: IV D5/ 0.9% NACL 1,000 ML IV ONE (01:33)
[2025-03-05] MEDS: MORPHINE SULFATE INJ 2 MG/ML DISP.SYRIN IV PRN (01:55)
[2025-03-05 07:19] LABS: INR 1.04 (0.91-1.10)
[2025-03-05 07:27] LABS: CALCIUM, SERUM 8.9 mg/dL (8.5-10.1); CREATININE 0.8 mg/dL (0.6-1.3); PHOSPHORUS 2.0 mg/dL (2.5-4.9); SODIUM SERUM 139.0 mmol/L (136-145); UREA NITROGEN, BLOOD 19.0 mg/dL (7-18)
[2025-03-05] MEDS: dexaMETHasone SOD PHOSPHATE 10 MG/ML VIAL IV ONE (07:46)
[2025-03-05] MEDS: INSULIN REGULAR, HUMAN 100 UNIT/ML 3 ML VIAL SQ PRN (09:07)
[2025-03-05 09:59] VITALS: BP 140/104; TEMP 98.1; O2SAT 96
[2025-03-05] MEDS: METOPROLOL SUCCINATE 50 MG TAB.SR.24H PO SCH (11:00)
[2025-03-05] MEDS: K PHOS NEUTRAL 250 MG TABLET PO ONE (16:22)
[2025-03-05] MEDS: IV NS 0.9% 1,000 ML IV PRN (17:59)
[2025-03-05 20:00] VITALS: BP 125/95; TEMP 97.5; O2SAT 97
[2025-03-05] MEDS: CYANOCOBALAMIN 1,000 MCG/ML VIAL IM SCH (23:04)
[2025-03-05] MEDS: INSULIN GLARGINE, 100 UNIT/ML CARTRIDGE SQ SCH (23:07)
[2025-03-06 07:00] VITALS: BP 108/88; TEMP 97.9; O2SAT 96
[2025-03-06 15:00] VITALS: BP 129/91; TEMP 97.5; O2SAT 96
[2025-03-06] MEDS ORDERED: CT SWABBABLE VALVE TRANS SET 1 EA INFUS.SET MC ONE (16:56)
[2025-03-06] MEDS ORDERED: IOHEXOL-350 100 ML VIAL IV ONE (16:56)
[2025-03-06] MEDS ORDERED: IV NS 0.9% 250 ML IV ONE (16:56)
[2025-03-06 20:00] VITALS: BP 142/93; TEMP 97.3; O2SAT 94
[2025-03-07 08:00] VITALS: BP 134/88; TEMP 98.6; O2SAT 94
[2025-03-07 08:09] LABS: PLATELET COUNT (AUTO) 158 K/uL (150-450); RED BLOOD CELL COUNT(AUTO) 5.05 MIL/uL (4.5-6.0); RED CELL DISTRIBUTION WIDTH 14.2 % (11.5-15.0); WHITE BLOOD COUNT (AUTO) 9.5 K/uL (4.3-11.0)
[2025-03-07 08:47] LABS: ASPARTATE AMINOTRANSFERASE 19.0 U/L (15-37); CALCIUM, SERUM 8.3 mg/dL (8.5-10.1); CREATININE 0.8 mg/dL (0.6-1.3); PHOSPHORUS 2.9 mg/dL (2.5-4.9); SODIUM SERUM 141.0 mmol/L (136-145); TOTAL PROTEIN, SERUM 6.5 g/dL (6.4-8.2); UREA NITROGEN, BLOOD 26.0 mg/dL (7-18)
[2025-03-07] MEDS: POTASSIUM CHLORIDE 20 MEQ TAB.PRT.SR PO SCH (10:10)
[2025-03-07 20:00] VITALS: BP 137/92; TEMP 97.3; O2SAT 95
[2025-03-08 07:49] LABS: PLATELET COUNT (AUTO) 157 K/uL (150-450); RED BLOOD CELL COUNT(AUTO) 5.09 MIL/uL (4.5-6.0); RED CELL DISTRIBUTION WIDTH 13.9 % (11.5-15.0); WHITE BLOOD COUNT (AUTO) 7.5 K/uL (4.3-11.0)
[2025-03-08 08:00] VITALS: BP 120/90; TEMP 97.3; O2SAT 96
[2025-03-08 08:29] LABS: ASPARTATE AMINOTRANSFERASE 12.0 U/L (15-37); CALCIUM, SERUM 8.2 mg/dL (8.5-10.1); CREATININE 0.6 mg/dL (0.6-1.3); PHOSPHORUS 3.4 mg/dL (2.5-4.9); SODIUM SERUM 142.0 mmol/L (136-145); TOTAL PROTEIN, SERUM 6.0 g/dL (6.4-8.2); UREA NITROGEN, BLOOD 20.0 mg/dL (7-18)
[2025-03-08] MEDS: POTASSIUM CHLORIDE 20 MEQ TAB.PRT.SR PO SCH (09:27)
[2025-03-08 16:00] VITALS: BP 138/88; TEMP 97.7; O2SAT 96
[2025-03-08 20:00] VITALS: BP_SYST 134; BP_SYST 99; BP_DIAS 79; BP_DIAS 99; TEMP 97.7; TEMP 98.1; O2SAT 98
[2025-03-09 06:56] LABS: PLATELET COUNT (AUTO) 178 K/uL (150-450); RED BLOOD CELL COUNT(AUTO) 5.16 MIL/uL (4.5-6.0); RED CELL DISTRIBUTION WIDTH 14.2 % (11.5-15.0); WHITE BLOOD COUNT (AUTO) 6.7 K/uL (4.3-11.0)
[2025-03-09] MEDS ORDERED: FENTANYL PF 250MCG/5ML AMPUL ONE (07:12)
[2025-03-09] MEDS ORDERED: ROCURONIUM BROMIDE 50 MG/5 ML ONE (07:12)
[2025-03-09 07:21] LABS: ASPARTATE AMINOTRANSFERASE 14.0 U/L (15-37); CALCIUM, SERUM 8.4 mg/dL (8.5-10.1); CREATININE 0.7 mg/dL (0.6-1.3); PHOSPHORUS 3.5 mg/dL (2.5-4.9); SODIUM SERUM 141.0 mmol/L (136-145); TOTAL PROTEIN, SERUM 6.3 g/dL (6.4-8.2); UREA NITROGEN, BLOOD 19.0 mg/dL (7-18)
[2025-03-09] MEDS ORDERED: LIDOCAINE 0.5%-EPI 1:200,000 50 ML VIAL ONE (07:23)
[2025-03-09] MEDS ORDERED: HEMOSTATIC MATRIX 8 ML 1 EACH PAD MC ONE (07:23)
[2025-03-09] MEDS ORDERED: POLYMYXIN B SULFATE 0 UNITS ONE (07:23)
[2025-03-09] MEDS ORDERED: VANCOMYCIN 1 GM VIAL ONE (07:23)
[2025-03-09] MEDS ORDERED: LABETALOL HCL IV 100MG VIAL ONE (07:38)
[2025-03-09] MEDS ORDERED: HEPARIN SODIUM, PORCINE 5000 UNITS/1 ML VIAL ONE (08:21)
[2025-03-09] MEDS ORDERED: dexaMETHasone SOD PHOSPHATE 1 ML ONE (08:43)
[2025-03-09] MEDS ORDERED: POTASSIUM CL. PREMIX PERIPHER. 50 ML IV SCH ×2 (11:00→13:00)
[2025-03-09] MEDS ORDERED: FENTANYL PF 100MCG/2ML AMPUL ONE (11:21)
[2025-03-09] MEDS ORDERED: DOCUSATE SODIUM 250 MG CAPSULE PO PRN (12:00)
[2025-03-09] MEDS ORDERED: BISACODYL SUPP (10 MG) 10 MG/SUPP.RECT SUPP.RECT RC PRN (12:00)
[2025-03-09] MEDS ORDERED: SENNOSIDES 8.6 MG TABLET PO PRN (12:00)
[2025-03-09] MEDS ORDERED: ONDANSETRON HCL/PF 4 MG/2 ML VIAL IVP PRN (12:00)
[2025-03-09 12:10] VITALS: BP 136/84; TEMP 98.1; O2SAT 96
[2025-03-09 12:25] VITALS: BP 136/84; TEMP 98.2; O2SAT 96
[2025-03-09 12:40] VITALS: BP 130/88; TEMP 97.8; O2SAT 96
[2025-03-09 12:55] VITALS: BP 120/90; TEMP 98; O2SAT 95
[2025-03-09] MEDS: POTASSIUM CHLORIDE 20 MEQ TAB.PRT.SR PO ONE (12:59)
[2025-03-09] MEDS: IV NS W/20MEQ KCL 1L IV SCH (14:37)
[2025-03-09] MEDS: HYDROMORPHONE 1 MG/1 ML DISP.SYRIN IV PRN (15:25)
[2025-03-09 16:00] VITALS: BP 133/98; TEMP 97.7; O2SAT 94
[2025-03-09 20:00] VITALS: BP 129/87; TEMP 97.7; O2SAT 94
[2025-03-09] MEDS: VANCOMYCIN 1 GM in IV D5W 250ml IV SCH (20:42)
[2025-03-10 08:00] VITALS: BP 133/89; TEMP 97.3; O2SAT 95
[2025-03-10 08:04] LABS: PLATELET COUNT (AUTO) 209 K/uL (150-450); RED BLOOD CELL COUNT(AUTO) 4.98 MIL/uL (4.5-6.0); RED CELL DISTRIBUTION WIDTH 13.8 % (11.5-15.0); WHITE BLOOD COUNT (AUTO) 12.8 K/uL (4.3-11.0)
[2025-03-10 08:43] LABS: CALCIUM, SERUM 8.6 mg/dL (8.5-10.1); CREATININE 0.8 mg/dL (0.6-1.3); PHOSPHORUS 3.6 mg/dL (2.5-4.9); SODIUM SERUM 140.0 mmol/L (136-145); UREA NITROGEN, BLOOD 26.0 mg/dL (7-18)
[2025-03-10 16:00] VITALS: BP 116/84; TEMP 97.5; O2SAT 94
[2025-03-10 20:00] VITALS: BP 130/95; TEMP 97.7; O2SAT 95
[2025-03-10 21:19] VITALS: BP 130/95; TEMP 97.7; O2SAT 95
[2025-03-11 08:00] VITALS: BP 116/81; TEMP 98.2; O2SAT 95
[2025-03-11 15:00] LABS: APPEARANCE,URINE CLEAR (CLEAR); BLOOD, URINE NEGATIVE Ery/uL (NEGATIVE); LEUKOCYTE ESTERASE ,URINE NEGATIVE (NEGATIVE); NITRITE, URINE NEGATIVE (NEGATIVE); UGLUCOSE 3+ mg/dL (NEGATIVE)
[2025-03-11 15:10] LABS: ADD URINE CULTURE NO; SQUAMOUS EPITHELIAL CELL,UR Few /HPF (None Seen)
[2025-03-11 16:00] VITALS: BP 102/73; TEMP 98.1; O2SAT 94
[2025-03-11 17:34] VITALS: BP 143/70
== END 2025-03-11 18:10 | DRG 472 ==
LOC: ER 15:55 → MED 17:50
PROVIDERS: ADMIT Nurse Practitioner Family
PROC: 0RG10A0 Fusion of Cervical Vertebral Joint with Interbody Fusion Device, Anterior Approach, Anterior Column, Open Approach (ICD-10-PCS; 2025-03-09)
PROC: 01N10ZZ Release Cervical Nerve, Open Approach (ICD-10-PCS; 2025-03-09)
PROC: 0PP30JZ Removal of Synthetic Substitute from Cervical Vertebra, Open Approach (ICD-10-PCS; 2025-03-09)
PROC: 0RB30ZZ Excision of Cervical Vertebral Disc, Open Approach (ICD-10-PCS; principal; 2025-03-09 07:30)
DX: M50.021 Cervical disc disorder at C4-C5 level with myelopathy (principal); G95.89 Other specified diseases of spinal cord; I16.0 Hypertensive urgency; E11.65 Type 2 diabetes mellitus with hyperglycemia; E66.9 Obesity, unspecified; E86.0 Dehydration; M48.02 Spinal stenosis, cervical region; E87.6 Hypokalemia; R29.6 Repeated falls; E78.5 Hyperlipidemia, unspecified; E86.1 Hypovolemia; G89.29 Other chronic pain; I10 Essential (primary) hypertension; M50.121 Cervical disc disorder at C4-C5 level with radiculopathy; R53.1 Weakness; Z68.29 Body mass index [BMI] 29.0-29.9, adult; V89.2XXS Person injured in unspecified motor-vehicle accident, traffic, sequela; I25.10 Atherosclerotic heart disease of native coronary artery without angina pectoris; R26.89 Other abnormalities of gait and mobility; Z79.4 Long term (current) use of insulin; Z79.84 Long term (current) use of oral hypoglycemic drugs; Z88.0 Allergy status to penicillin; Z88.2 Allergy status to sulfonamides
CPT/HCPCS: 36415; 70450-TC; 71045-TC; 72040-TC; 72125-TC; 72141-TC; 75574; 80048-TC; 80053-TC; 80061-TC; 80076-TC; 81001; 82010-TC; 82803-TC; 82962-TC; 83690-TC; 83735-TC; 83935-TC; 84100-TC; 84300-TC; 84443-TC; 84484-TC; 84550-TC; 85025-TC; 85610-TC; 85730-TC; 86850-TC; 87086-TC; 93307-TC; 97110-TC; 97116-TC; 97164; 97530-TC; 97535-TC; A4223; A6209; A6254; A6402; C1713; C1751; C1889; G0378; J0461; J0690; J1100; J1171; J1644; J1815; J2270; J2704; J3010; J3373; J3420; J3480; J3490; J7030; J7042; J7050; J7060; Q9967